=== PATIENT | female | born 1980 | race Caucasian/White ===

== ENCOUNTER → 2018-03-19 09:38 | Outpatient (REF) | payer BC, SELFPAY ==
--- NOTE | 2018-03-19 08:30 | PAPFT_PTH ---
PATIENT: Shannan Batista LOC: [facility] U#:[id number] AGE/SX: 44/F ROOM: RE03/19/[address]: CAMILLE Montejo : 1980 BED: DIS: SPEC #: [id number] RECD: 03/19/18 13:00 STATUS: ADAL RECaesar #: [id number] MYRIAM: 03/19/18 08:[address]: Leidy Aldridge DEPT: [facility] Cytology RECD BY: Sydney Angel ENTERED: 03/19/18 13:00 SP TYPE: PAPFT OT DR: Kahlil Camarillo MD Tissues: 1 - CX/ENDOCX FOR PAP SMEARS Procedures: PAP THIN PREP/UVM Screening HPV DNA PROBE Comments: [id number]
== END ==
LOC: LBN 09:38
PROVIDERS: PCP Family Medicine; Visit Provider Nurse Practitioner Family
DX: Z12.4 Encounter for screening for malignant neoplasm of cervix (principal); Z11.51 Encounter for screening for human papillomavirus (HPV)
CPT/HCPCS: 88142; 87624

== ENCOUNTER 2018-06-18 10:08 | Outpatient (CLI) | payer BC, SELFPAY ==
[2018-06-18 12:26] LABS: FREE T4 0.98 ng/dL (0.76-1.46)
== END 2018-06-18 10:28 ==
PROVIDERS: PCP Family Medicine; Visit Provider Nurse Practitioner Family
DX: E03.9 Hypothyroidism, unspecified (principal)
CPT/HCPCS: 36415; 84439; 84443

== ENCOUNTER 2019-06-30 13:11 | Outpatient (CLI) | payer BC, SELFPAY ==
[2019-06-30 14:25] LABS: FREE T4 1.12 ng/dL (0.76-1.46); TSH 3.36 uIU/mL (0.36-3.74)
[2019-06-30 14:40] LABS: Calculated LDL 99 mg/dL; Cholesterol 182 mg/dL (<200); HDL Cholesterol 73 mg/dL (40-60); Triglyceride 51 mg/dL (<150)
[2019-07-01 14:35] LABS: Measles IgG Antibody Positive (See Note)
== END 2019-06-30 13:31 ==
PROVIDERS: PCP Family Medicine; Visit Provider Nurse Practitioner Family
DX: E03.9 Hypothyroidism, unspecified (principal); Z01.84 Encounter for antibody response examination
CPT/HCPCS: 36415; 80061; 84439; 84443; 86765

== ENCOUNTER 2020-08-03 01:55 | Outpatient (CLI) | payer BC, SELFPAY ==
[2020-08-03 09:57] LABS: Hemoglobin A1C 5.1 % (<5.7)
[2020-08-03 10:39] LABS: FREE T4 1.07 ng/dL (0.76-1.46); TSH 2.35 uIU/mL (0.36-3.74)
== END 2020-08-03 02:15 ==
PROVIDERS: PCP Nurse Practitioner Family; Visit Provider Nurse Practitioner Family
DX: E03.9 Hypothyroidism, unspecified (principal)
CPT/HCPCS: 36415; 83036; 84439; 84443

== ENCOUNTER 2021-05-23 00:51 | Outpatient (CLI) | payer BC, SELFPAY ==
--- NOTE | 2021-05-23 08:45 | DI.MAMMO_ITS ---
Exam(s) MAMMO SCREENING EXAM: MAMMO SCREENING CLINICAL HISTORY: screening,Z12.39. TECHNIQUE: Bilateral full field digital CC and MLO mammographic images were obtained with 3D tomosyn thesis and utilizing computer aided detection (CAD). COMPARISON: None. This is a baseline mammogram on this 40-year-old patient. FINDINGS: Fibroglandular tissue pattern is quite dense, this decreasing the sensitivity of the mammogram for fi nding in underlying lesions. There are no CAD designations. There are no obvious spiculated masses nor malignant-appearing microcalcification groups in either br east. There is no significant architectural distortion nor skin thickening-retraction. IMPRESSION: Dense bilateral fibroglandular tissue. No obvious radiographic evidence of malignancy. BI-RADS Category 1 - Negative Breast Density - Category C - Heterogeneously dense Breast density Category C or D implies that the patient has dense breast tissue. Dense breast tissue can make it harder to find cancer on a mammogram. Dense breast tissue is also associated with an incr eased risk of breast cancer. This information about the result of the mammogram report was provided to the patient to raise their awareness. Use this report when you speak with the patient about their risks for breast cancer, which includes their family history. At that time, you may recommend additional screening tests (Ultrasoun d or MRI) as these tests may add significant information. A negative radiographic report should not delay biopsy if a dominant or clinically suspicious mass is present. Up to ten percent of cancers are not identified on mammography. A negative report may reinforce clinical impression. Adenosis and dense breasts may obscure an underlying neoplasm. False positive reports average 6 to 10%. Patient will receive a letter notifying them of these results.
== END 2021-05-23 01:11 ==
PROVIDERS: PCP Nurse Practitioner Family; Visit Provider Nurse Practitioner Family
DX: Z12.31 Encounter for screening mammogram for malignant neoplasm of breast (principal); R92.8 Other abnormal and inconclusive findings on diagnostic imaging of breast
CPT/HCPCS: 77063; 77067

== ENCOUNTER 2021-12-22 02:48 | Outpatient (CLI) | payer BC, SELFPAY ==
[2021-12-22 08:23] LABS: Anion Gap 8.7 mmol/L (3-11); BUN 17 mg/dL (7-18); CO2 24.3 mmol/L (21.0-32.0); CREATININE 0.8 mg/dL (0.55-1.02); Calcium 8.8 mg/dL (8.5-10.1); Chloride 108 mmol/L (98-107); FREE T4 0.99 ng/dL (0.76-1.46); Glucose 91 mg/dL (74-106); Sodium 141 mmol/L (136-145); TSH 4.11 uIU/mL (0.36-3.74)
== END 2021-12-22 02:49 | disposition home or self-care (01) ==
LOC: LBO 02:48
PROVIDERS: PCP Nurse Practitioner Family; Visit Provider Nurse Practitioner Family
DX: E03.9 Hypothyroidism, unspecified (principal)
CPT/HCPCS: 36415; 80048; 84439; 84443

== ENCOUNTER 2022-10-01 01:54 | Outpatient (CLI) | payer BC, SELFPAY ==
--- NOTE | 2022-10-01 08:30 | DI.MAMMO_ITS ---
Exam(s) MAMMO SCREENING EXAM: MAMMO SCREENING CLINICAL HISTORY: screening,Z12.39 TECHNIQUE: Bilateral full field digital CC and MLO mammographic images were obtained with 3D tomosyn thesis and utilizing computer aided detection (CAD). COMPARISON: Available for comparison. FINDINGS: Masses/Architectural Distortion: None seen. Microcalcifications: No suspicious pleomorphic-type are seen. Skin Thickening/Nipple Retraction: None. IMPRESSION: 1. No significant interval change with no specific features of malignancy noted. 2. Unless there is more urgent need, screening mammography is recommended, as per [employer] guidelines. BI-RADS Category 1 - Negative Breast Density - Category C - Heterogeneously dense Breast density category C or D implies that the patient has dense breast tissue. Dense breast tissue is very common and is not abnormal but dense breast tissue can make it harder to find cancer on a ma mmogram. Also, dense breast tissue may increase their breast cancer risk. This information about the result of the mammogram report was provided to the patient to raise their awareness. Use this report when you speak with the patient about their risks for breast cancer, which includes their family hist ory. At that time, you may recommend for more screening tests (Ultrasound or MRI) as they might be us eful based on their risk. A negative radiographic report should not delay biopsy if a dominant or clinically suspicious mass is present. Up to ten percent of cancers are not identified on mammography. A negative report may reinforce clinical impression. Adenosis and dense breasts may obscure an underlying neoplasm. False positive reports average 6 to 10%. Patient will receive a letter notifying them of these results.
== END 2022-10-01 02:14 ==
PROVIDERS: PCP Nurse Practitioner Family; Visit Provider Nurse Practitioner Family
DX: Z12.31 Encounter for screening mammogram for malignant neoplasm of breast (principal); R92.8 Other abnormal and inconclusive findings on diagnostic imaging of breast
CPT/HCPCS: 77063; 77067

== ENCOUNTER 2023-05-15 03:30 | Outpatient (CLI) | payer BC, SELFPAY ==
[2023-05-15 08:10] LABS: Anion Gap 8.3 mmol/L (3-11); BUN 14 mg/dL (7-18); CO2 23.7 mmol/L (21.0-32.0); CREATININE 0.9 mg/dL (0.55-1.02); Calcium 9.2 mg/dL (8.5-10.1); Chloride 109 mmol/L (98-107); Estimated GFR 81.86 (mL/min/1.73m2); Glucose 94 mg/dL (74-106); Potassium 4.2 mmol/L (3.5-5.1); Sodium 141 mmol/L (136-145); TSH (W/Ref FT4) 2.74 uIU/mL (0.36-3.74)
[2023-05-15 08:22] LABS: Calculated LDL 112 mg/dL (<100); Cholesterol 193 mg/dL (<200); HDL Cholesterol 69 mg/dL (40-60); Triglyceride 62 mg/dL (<150)
== END 2023-05-15 03:31 | disposition home or self-care (01) ==
LOC: LBO 03:30
PROVIDERS: PCP Nurse Practitioner Family; Visit Provider Nurse Practitioner Family
DX: Z00.00 Encounter for general adult medical examination without abnormal findings (principal)
CPT/HCPCS: 36415; 80048; 80061; 84443

== ENCOUNTER 2023-06-28 13:38 | Outpatient (REF) | payer BC, SELFPAY ==
--- NOTE | 2023-06-28 13:00 | PAPFT_PTH ---
PATIENT: Shannan Batista LOC: [facility] U#:[id number] AGE/SX: 42/F ROOM: RE06/28/[address]: CAMILLE Montejo : 1980 BED: DIS: 06/28/2023 SPEC #: [id number] RECD: 07/01/23 12:54 STATUS: ADAL REQ #: [id number] MYRIAM: 06/28/23 13:[address]: Leidy Aldridge DEPT: [facility] Cytology RECD BY: Sydney Angel Tissues: 1 - CX/ENDOCX FOR PAP SMEARS Procedures: PAP THIN PREP/UVM Screening HPV DNA PROBE Comments: [id number]
== END 2023-06-28 13:39 | disposition home or self-care (01) ==
LOC: LBN 13:38
PROVIDERS: PCP Nurse Practitioner Family; Visit Provider Nurse Practitioner Family
DX: Z12.4 Encounter for screening for malignant neoplasm of cervix (principal)
CPT/HCPCS: 88142; 87624

== ENCOUNTER 2023-09-13 14:47 | Outpatient (REF) | payer BC, SELFPAY | END 2023-09-13 14:48 | disposition home or self-care (01) | LOC: LBN 14:47 | PROVIDERS: PCP Nurse Practitioner Family; Visit Provider Physician Assistant Medical | DX: J02.9 Acute pharyngitis, unspecified (principal) | CPT/HCPCS: 87070 ==

== ENCOUNTER → 2023-10-02 00:17 | Outpatient (CLI) | payer BC, SELFPAY ==
--- NOTE | 2023-10-02 07:45 | DI.MAMMO_ITS ---
Exam(s) MAMMO SCREENING EXAM: MAMMO SCREENING CLINICAL HISTORY: screening,z12.39. TECHNIQUE: Bilateral full field digital CC and MLO mammographic images were obtained with 3D tomosyn thesis and utilizing computer aided detection (CAD). COMPARISON: Prior mammograms were reviewed. FINDINGS: Fibroglandular tissue pattern is again noted be dense, this somewhat decreasing the sensitivity of th e mammogram for finding hidden underlying lesions. There are no CAD designations. There are no obvious new spiculated masses nor malignant appearing microcalcification groups. There is no significant architectural distortion nor skin thickening-retraction. IMPRESSION: No radiographic evidence of malignancy. BI-RADS Category 1 - Negative Breast Density - Category C - Heterogeneously dense Breast density Category C or D implies that the patient has dense breast tissue. Dense breast tissue can make it harder to find cancer on a mammogram. Dense breast tissue is also associated with an incr eased risk of breast cancer. This information about the result of the mammogram report was provided to the patient to raise their awareness. Use this report when you speak with the patient about their risks for breast cancer, which includes their family history. At that time, you may recommend additional screening tests (Ultrasoun d or MRI) as these tests may add significant information. A negative radiographic report should not delay biopsy if a dominant or clinically suspicious mass is present. Up to ten percent of cancers are not identified on mammography. A negative report may reinforce clinical impression. Adenosis and dense breasts may obscure an underlying neoplasm. False positive reports average 6 to 10%. Patient will receive a letter notifying them of these results.
== END ==
PROVIDERS: PCP Nurse Practitioner Family; Visit Provider Nurse Practitioner Family
DX: Z12.31 Encounter for screening mammogram for malignant neoplasm of breast (principal)
CPT/HCPCS: 77063; 77067

== ENCOUNTER 2023-11-29 16:54 | Outpatient (CLI) | payer BC, SELFPAY ==
[2023-11-29 17:00] LABS: Abs Immature Grans 0.01 10^3/uL (0.0-0.06); Absolute Lymphocyte Count 2.33 10^3/uL (1.2-3.4); Absolute Monocyte Count 0.31 10^3/uL (0.1-0.8); Absolute Neutrophil Count 1.25 10^3/uL (1.2-6.7); HCT 33.9 % (36.0-46.0); HGB 10.9 g/dL (11.2-15.7); Immature Grans % 0.3; Lymphocytes % 59.7; MCH 25.9 pg (27.0-33.0); MCHC 32.2 % (32.0-36.0); MCV 81 fL (80-95); MPV 10.3 fL (8.0-11.0); Monocytes % 7.9; Neutrophils % 32.1; Platelet Count 239 10^3/uL (130-400); RBC 4.21 10^6/uL (3.93-5.22); RDW 13.2 % (11.7-14.6); RDW-SD 38.7 fL
[2023-11-29 17:40] LABS: ALT 17 U/L (14-59); AST 10 U/L (15-37); Albumin 3.8 g/dL (3.4-5.0); Alkaline Phosphatase 78 U/L (46-116); Anion Gap 9.1 mmol/L (3-11); BUN 15 mg/dL (7-18); Bilirubin, Total 0.4 mg/dL (0.2-1.0); CO2 25.9 mmol/L (21.0-32.0); CREATININE 0.9 mg/dL (0.55-1.02); Calcium 8.5 mg/dL (8.5-10.1); Chloride 107 mmol/L (98-107); Estimated GFR 81.35 (mL/min/1.73m2); Glucose 93 mg/dL (74-106); Lipase 57 U/L (16-77); Potassium 3.8 mmol/L (3.5-5.1); Sodium 142 mmol/L (136-145); Total Protein 6.8 g/dL (6.4-8.2)
[2023-12-02 08:21] LABS: Ferritin 8 ng/mL (8-252)
[2023-12-03 13:31] LABS: Helicobacter pylori Ag, Feces Negative (Negative)
== END 2023-11-29 16:55 | disposition home or self-care (01) ==
LOC: LBO 16:55
PROVIDERS: PCP Nurse Practitioner Family; Visit Provider Nurse Practitioner Family
DX: K21.9 Gastro-esophageal reflux disease without esophagitis (principal)
CPT/HCPCS: 36415; 80053; 83690; 87338; 82607; 82728; 82746; 85025

== ENCOUNTER 2023-12-06 01:16 | Outpatient (CLI) | payer BC, SELFPAY ==
[2023-12-06 16:58] LABS: Total Iron Binding Capacity 392 ug/dL (250-450)
[2023-12-06 17:11] LABS: Folate 19.3 ng/mL (8.6-20.0); TSH (W/Ref FT4) 1.36 uIU/mL (0.36-3.74); Vitamin B12 917 pg/mL (193-986)
[2023-12-09 10:00] LABS: Transferrin 289 mg/dL (201-352)
== END 2023-12-06 01:17 | disposition home or self-care (01) ==
LOC: LBO 01:17
PROVIDERS: PCP Nurse Practitioner Family; Visit Provider Nurse Practitioner Family
DX: D50.9 Iron deficiency anemia, unspecified (principal); D64.9 Anemia, unspecified
CPT/HCPCS: 36415; 82607; 82746; 83550; 84443; 84466

== ENCOUNTER 2024-01-03 16:02 | Outpatient (CLI) | payer BC, SELFPAY ==
[2024-01-03 16:16] LABS: Abs Immature Grans 0.01 10^3/uL (0.0-0.06); Absolute Lymphocyte Count 2.52 10^3/uL (1.2-3.4); Absolute Monocyte Count 0.31 10^3/uL (0.1-0.8); Absolute Neutrophil Count 1.64 10^3/uL (1.2-6.7); HCT 36.5 % (36.0-46.0); Immature Grans % 0.2 %; Lymphocytes % 56.3 %; MCH 27.1 pg (27.0-33.0); MCHC 32.9 % (32.0-36.0); MCV 83 fL (80-95); MPV 10.2 fL (8.0-11.0); Monocytes % 6.9 %; Neutrophils % 36.6 %; Platelet Count 187 10^3/uL (130-400); RBC 4.42 10^6/uL (3.93-5.22); RDW 16.8 % (11.7-14.6); RDW-SD 50.4 fL; WBC 4.48 10^3/uL (4.4-10.8)
[2024-01-03 16:57] LABS: ALT 17 U/L (14-59); AST 7 U/L (15-37); Albumin 3.6 g/dL (3.4-5.0); Alkaline Phosphatase 72 U/L (46-116); Anion Gap 4.8 mmol/L (3-11); BUN 15 mg/dL (7-18); Bilirubin, Total 0.2 mg/dL (0.2-1.0); CO2 25.2 mmol/L (21.0-32.0); CREATININE 0.7 mg/dL (0.55-1.02); Calcium 8.7 mg/dL (8.5-10.1); Chloride 106 mmol/L (98-107); Estimated GFR 109.98 (mL/min/1.73m2); Ferritin 32 ng/mL (8-252); Glucose 118 mg/dL (74-106); Potassium 3.6 mmol/L (3.5-5.1); Sodium 136 mmol/L (136-145); Total Protein 6.3 g/dL (6.4-8.2)
== END 2024-01-03 16:03 | disposition home or self-care (01) ==
LOC: LBO 16:02
PROVIDERS: PCP Nurse Practitioner Family; Visit Provider Nurse Practitioner Family
DX: D50.9 Iron deficiency anemia, unspecified (principal); K21.9 Gastro-esophageal reflux disease without esophagitis
CPT/HCPCS: 36415; 80053; 82728; 85025

== ENCOUNTER 2024-01-24 06:18 | Day surgery (SDC) | payer BC, SELFPAY ==
--- NOTE | 2024-01-23 19:31 | W.PM.DSUDISC ---
Date of service: 01/24/24 Time of Service: 07:42 Discharge Plan Disposition Patient Disposition: Home Condition: Good Discharge Details Reason For Visit: EGD Attending Provider: Raul Batista Primary Care Provider: Leidy Aldridge Home Meds and New Rx's Prescriptions: Continued venlafaxine 150 mg capsule,extended release 24hr 150 mg PO DAILY Qty: 90 3RF cyanocobalamin (vitamin B-12) 1,000 mcg capsule 1,000 mcg PO DAILY sucralfate 1 gram tablet 1 g PO QACHS PRN (Reason: heartburn) Qty: 60 0RF omeprazole 40 mg capsule,delayed release(DR/EC) 40 mg PO DAILY Qty: 90 0RF levothyroxine 88 mcg tablet 88 mcg PO DAILY Qty: 90 3RF ferrous sulfate 325 mg (65 mg iron) tablet 325 mg PO DAILY Qty: 90 3RF Discharge Instructions Instructions: Gastritis Additional Instructions: Mariela, we were able to complete your endoscopy today without any difficulty at all. Generally speaking, things look very good. There is a few areas of erythema, or inflammation in the bottom portion of your stomach called the antrum. This is consistent with some very mild gastritis. It could explain a mild iron deficiency anemia. I did do some biopsies of your stomach, as well as the first portion of your small intestine. Although I do not see strong clinical features of celiac disease, or other worrisome peptic ulcer disease, I will send the biopsies off to see if there is anything that is not evident to the naked eye. For now, I would continue using the omeprazole, and the iron supplementation. You are certainly welcome to use your sucralfate prescription if you find it helpful, but based on what I saw today, I am skeptical that is doing much for you. Will take a week or so for me to get the results of the biopsies, and once I have them the office will be in touch with any other recommendations. 1. If tolerated, consume a soft, low fiber diet for 1-2 days. 2[address] Do not drive, drink alcohol, operate machinery, make critical decisions, or do activities that require coordination or balance for 24 hours. 3. You may experience a sore throat for 24 to 48 hours. You may use throat lozenges or gargle with warm salt water to relieve the discomfort. 4. Because air was put into your stomach during the procedure, you may experience some belching. 5. Go directly to the emergency room if you notice any of the following: Develop chills (warm to touch), or if you have a thermometer and your temperature is above 101 Difficulty breathing or difficultly swallowing Persistent vomiting Severe abdominal pain, other than gas cramps Severe chest pain Black, tarry stools Any bleeding ? exceeding one tablespoon 6. Call your physician if the site where your intravenous was started becomes red, swollen, painful, and warm to touch. 7. Your physician has reviewed your pre-procedure medications. Please continue to take those medications as previously ordered. You will be given specific information/education regarding any changes to your medications before leaving. Activity:: Activity as Tolerated Diet:: As Tolerated Discharge Orders Discharge Orders: Discharge Order (Routine); Ordered 01/23/24 Ordered By: Raul Batista DS: Diagnosis Discharge Diagnosis (1) Iron deficiency anemia: Status: Acute Asessment and Plan: Mild antral gastritis. Continue with proton pump inhibitor. Follow-up on biopsies
--- NOTE | 2024-01-23 19:32 | ENDO_ITS ---
Date of service: 01/24/24 Time of Service: 07:45 Endoscopy Report DATE OF PROCEDURE: 01/24/24 PRE-OP DIAGNOSIS: Iron deficiency Anemia POST-OP DIAGNOSIS: other (Mild gastritis) PROCEDURE: EGD with biopsies SURGEON: Raul Batista ANESTHESIA TYPE: General:No Airway ESTIMATED BLOOD LOSS: 10 PATHOLOGY: other (Random biopsies of duodenum, gastric antrum, gastric body) COMPLICATIONS: None DISPOSITION: same day INDICATIONS: Mariela is a 43 year old woman with dyspepsia symptoms and iron deficiency anemia. PROCEDURE START TIME: 07:27 PROCEDURE END TIME: 07:35 FINDINGS: Very mild antral gastritis PROCEDURE DESCRIPTION: After the initiation of anesthesia, and with the assistance of a bite block, I advanced a standard gastroscope through the mouth past the hypopharynx and into the esophagus.? Under the direct vision of the scope, I advanced down the esophagus towards the stomach.? The upper, mid, and lower esophagus were all normal-appearing. The GE junction and Z-line were encountered around 36 cm from the incisors. Narrowband imaging was used here. I did not see any evidence of any significant gastroesophageal reflux, or Harp's esophagus. I advanced the camera into the stomach and insufflated to the rugae were obliterated. To perform retroflexion. I did not see any signs of hiatal hernia. Gastric cardia and body were normal. I advanced the camera down around the incisura angularis. There are a few areas of erythema and inflammation that appear consistent with antral gastritis. There are no discrete ulcers. I advanced down through the pylorus into the duodenum. The camera was moved into the distal second and proximal third portions of the duodenum. The mucosa was all normal and healthy appearing. Villi within the duodenum proper appeared normal and healthy. There was a little bit of thinning of the duodenal villi within the duodenal bulb. H owever, it does not seem clinically consistent with celiac disease. I did perform some random biopsies of the duodenum with cold forceps. Similarly, I perform random biopsies of the gastric antrum and body to rule out Helicobacter pylori or other forms of gastritis not evident to the naked eye. The stomach was then emptied, and the camera was brought back out along the length of the esophagus 1 last time. No other abnormalities were appreciated.
[2024-01-24 06:39] VITALS: BP 107/68; PULSE 72; RESP 16; TEMP 36.7; O2SAT 99
[2024-01-24] MEDS: Lactated Ringers 1,000 ML 80 ML IV (06:41)
--- NOTE | 2024-01-24 07:02 | ANES.PREOP_ITS ---
General Info Date of Service Date Performed: 01/24/24 Height: 5 ft 7.75 in Weight: 53.977 kg Body Mass Index (BMI): 18.2 Surgical Procedure: Operation Date: 01/24/24 07:35 Proposed Procedure Side Surgeon p Gastroscopy Raul Batista MD Meds Allergies and Home Medications Allergies Allergy/AdvReac Type Severity Reaction Status Date / Time propranolol AdvReac Mild Rash Verified 01/24/24 06:25 Home Medication Medication Instructions Recorded levothyroxine 88 mcg tablet 88 mcg PO DAILY #90 tabs 05/16/23 venlafaxine 150 mg 150 mg PO DAILY #90 caps 06/28/23 capsule,extended release 24 hr cyanocobalamin (vitamin B-12) 1,000 mcg PO DAILY 08/13/23 1,000 mcg capsule sucralfate 1 gram tablet 1 g PO QACHS PRN heartburn #60 tabs 11/28/23 ferrous sulfate 325 mg (65 mg 325 mg PO DAILY #90 tabs 12/04/23 iron) tablet omeprazole 40 mg capsule,delayed 40 mg PO DAILY #90 caps 12/30/23 release Current Visit Medications: Current Medications Generic Name Dose Route Start Last Admin Trade Name Freq PRN Reason Stop Dose Admin Hyoscyamine Sulfate 0.125 mg 01/23/24 19:33 Hyoscyamine 0.125 Mg Sl/Oral/Chew SL 02/22/24 19:32 DIRECTED PRN Ringer's Solution 1,000 mls @ 80 mls/hr 01/24/24 06:00 01/24/24 06:41 IV 02/22/24 23:59 80 mls/hr INFUSION BRIANA Administration IV Miscellaneous Supplies 1 each 01/24/24 06:00 Iv Access IV 02/22/24 23:59 DIRECTED BRIANA Ondansetron HCl 4 mg 01/23/24 19:33 Ondansetron 4 Mg/2 Ml Vial IVP 02/22/24 19:32 Q4H PRN PRN Nausea / Vomiting Sodium Chloride 0 ml 01/24/24 06:00 Normal Saline Flush 10 Ml Syr IV 02/22/24 23:59 PRN PRN Sodium Chloride 0 ml 01/24/24 06:00 Normal Saline 10 Ml Vial IJ 02/22/24 23:59 DIRECTED PRN Sterile Water 0 ml 01/24/24 06:00 Water,Injection,Sterile 10 Ml Vial IJ 02/22/24 23:59 DIRECTED PRN PFSH Active Problems Active Problems: Problem Status Onset Code Iron deficiency anemia D50.9 GERD (gastroesophageal reflux disease) K21.9 Hypothyroidism E03.9 Perimenopausal vasomotor symptoms N95.1 Migraine headache without aura G43.009 Chronic headache R51.9, G89.29 Generalized anxiety disorder Medical History Medical History Herpes zoster Surgical History Surgical History Status post endovenous radiofrequency ablation (RFA) of saphenous vein (10/30/17) Right GSV ablation with RFA and stab phlebectomies S/P appendectomy Tobacco Smoking/Tobacco Use Status: Never Passive smoking exposure: No Second hand exposure: No Alcohol Alcohol Intake: current Alcohol intake frequency: holidays/special occasions only Alcohol type: beer and wine Substance Use Substance use: Never Substance use type: does not use Prental History History 2 Para 2 Hx # Term Pregnancies Multiple births Hx # Pregnancies Ectopic pregnancies AB induced Hx Number of Living Children 2 AB spontaneous Vital Signs and Lab Results Vital Signs Most Recent Vital Signs in EMR: Most Recent Vital Signs Temp Pulse Resp BP Pulse Ox 36.7 C 72 16 107/68 99 01/24/24 06:39 01/24/24 06:39 01/24/24 06:39 01/24/24 06:39 01/24/24 06:39 Point of Care Results Point of Care Results: POC- Test(urine) Negative 01/24/24 06:42 Lab Results Blood Type / Crossmatch: No Data to Display Complete Blood Count: White Blood Count 4.48 10^3/uL (4.4-10.8) 01/03/24 16:09 Red Blood Count 4.42 10^6/uL (3.93-5.22) 01/03/24 16:09 Hemoglobin 12.0 g/dL (11.2-15.7) 01/03/24 16:09 Hematocrit 36.5 % (36.0-46.0) 01/03/24 16:09 Platelet Count 187 10^3/uL (130-400) 01/03/24 16:09 Complete Metabolic Panel: Sodium 136 mmol/L (136-145) 01/03/24 16:09 Potassium 3.6 mmol/L (3.5-5.1) 01/03/24 16:09 Chloride 106 mmol/L (98-107) 01/03/24 16:09 Carbon Dioxide 25.2 mmol/L (21.0-32.0) 01/03/24 16:09 BUN 15 mg/dL (7-18) 01/03/24 16:09 Creatinine 0.7 mg/dL (0.55-1.02) 01/03/24 16:09 Est GFR (CKD-EPI 2020) 109.98 (mL/min/1.73m2) 01/03/24 16:09 Calcium 8.7 mg/dL (8.5-10.1) 01/03/24 16:09 Albumin 3.6 g/dL (3.4-5.0) 01/03/24 16:09 Glucose 118 mg/dL (74-106) H 01/03/24 16:09 Liver Function Panel: Alanine Aminotransferase (ALT/SGPT) 17 U/L (14-59) 01/03/24 16: 09 Aspartate Amino Transf (AST/SGOT) 7 U/L (15-37) L 01/03/24 16:0 9 Coagulation Panel: No Data to Display Cardiac Panel: No Data to Display Arterial Blood Gas: No Data to Display Venous Blood Gas: No Data to Display Pancreas Panel: No Data to Display Thyroid Panel: No Data to Display Infectious Disease: No Data to Display Blood Cultures: No Data to Display Toxicology Panel: No Data to Display Panel: No Data to Display Anesthesia Assessment and Plan Anesthesia History Personal History: No History of Anesthesia Complications Family History: No Family History of Anesthesia Complications Exercise Tolerance Exercise Tolerance: Metabolic Equivalents>4 Pertinent Negatives Pertinent Negatives: No Major Cardiovascular Symptoms or Complaints and No Major Pulmonary Symptoms or Complaints Cardiac & Pulmonary Exam Cardiac Exam: Normal S1/S2 Heart Sounds Pulmonary Exam: Clear Bilateral Breath Sounds Implantable Cardiac Device Does patient have a Pacemaker or an ICD?: No Airway Exam Known Difficult Airway: No Mallampati Class: 1 Mouth Opening: Normal (> 3cm) Thyromental Distance: Greater than 3 cm Neck Range of Motion: Full ROM Neck Circumference: Normal Teeth Condition: Normal Dentition ASA Classification ASA Score: ASA 2 Emergency Case?: No NPO Status NPO Status: NPO Clears >2 hours, Solids >8 hours Status Status: Negative HCG Anesthesia Plan Resuscitation Status: Full Code Anesthesia Technique: General Anesthesia Airway Planned: Natural Airway Monitors Used: Standard Monitors
[2024-01-24 07:04] VITALS: BMI 18.2
--- NOTE | 2024-01-24 07:30 | STOM_PTH ---
PATIENT: Shannan Batista LOC: [facility] U#:[id number] AGE/SX: 43/F ROOM: RE01/24/[address]: Raul Batista MD : 1980 BED: DIS: 01/24/2024 SPEC #: [id number] RECD: 01/24/24 12:59 STATUS: ADAL [facility] #: [id number] MYRIAM: 01/24/24 07:[address]: Raul Batista DEPT: Surgical Specimen RECD BY: Sydney Angel ENTERED: 01/24/24 12:59 SP TYPE: STOMACH OTHR DR: Leidy Aldridge, CAMILLE Tissues: 1 - BIOPSY BOWEL 2 - STOMACH BIOPSY 3 - STOMACH BIOPSY Procedures: GROSS AND MICRO LEVEL 4 SPECIAL STAIN 1 Comments: [id number]
[2024-01-24 07:46] VITALS: BP 100/59; PULSE 71; RESP 16; TEMP 36.5; O2SAT 98
--- NOTE | 2024-01-24 07:54 | W.ANESPOSTOP ---
Postoperative Evaluation Date, Time and Location Date Performed: 01/24/24 Time Performed: 07:54 Patient Location: Day Surgery Unit Vital Signs Most Recent Imported Vital Signs: Most Recent Vital Signs Temp Pulse Resp BP Pulse Ox 36.5 C 71 16 100/59 L 98 01/24/24 07:46 01/24/24 07:46 01/24/24 07:46 01/24/24 07:46 01/24/24 07:46 Pain Score Most Recent Pain Score: Most Recent Pain Score Pain Level 0 01/24/24 07:46 Assessment Mental Status: Arousable with meaningful communication Airway and Respiratory Function: Patent airway with normal (patient baseline) respiratory exam Cardiovascular Function: Hemodynamically Stable Hydration Status: Adequately Hydrated Nausea & Vomiting: No Nausea or Vomiting Pain: Pt. Denies Any Pain Peripheral Nerve Block: Patient did not receive a nerve block
[2024-01-24 08:13] VITALS: BP 106/65; PULSE 59; RESP 16; TEMP 36.5; O2SAT 100
== END 2024-01-24 08:52 | disposition home or self-care (01) ==
LOC: SUR 06:18
PROVIDERS: PCP Nurse Practitioner Family; Visit Provider Surgery
PROC: 0DJ68ZZ Inspection of Stomach, Via Natural or Artificial Opening Endoscopic (ICD-10-PCS; CPT 43235; principal; 2024-01-24 07:30)
DX: D50.9 Iron deficiency anemia, unspecified (principal); K21.9 Gastro-esophageal reflux disease without esophagitis; K29.50 Unspecified chronic gastritis without bleeding; K31.89 Other diseases of stomach and duodenum
CPT/HCPCS: 43239; 81025; 88305; 88312; J2001; J2704

== ENCOUNTER 2024-06-05 19:08 | Outpatient (REF) | payer BC, SELFPAY ==
--- OUTSIDE RECORDS SUMMARY | 2024-06-05 19:10 | XMS_ITS | Encounter Summary ---
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 Name Role Phone Sania Bolanos APRN Primary Care Provider [phone] Reason for Visit * Reason Comments Varicose Veins * Consultation (Routine) - Specialty Diagnoses / Procedures Referred By Elissa estrada Referred To Contact Vascular Surgery Diagnoses Varicose veins of leg Sania Bolanos APRN [address] [place] [address] [facility] [address] [place] [address] Referral ID Status Reason Start Date Expiration Date V isits Requested Visits Authorized [id number] Consult, [facility] 07/28/2017 07/28/2018 2 2 Encounter Details Date Type Department Care Team (Late st Contact Info) Description 08/02/2017 9:30 AM EST Office [place] [address] Mickie Canas APRN [facility] [place] [address] Varicose veins of right lower extremity with pain Social History Tobacco Use Types Packs/Day Years Used Date Smoking Tobacco: Never Smokeless Tobacco: Never Sex and Gender Information Value Date Recorded Sex Assigned at Not on file Gender Identity Not on file Sexual Orientation Not on file documented as of this encounter Last Filed Vital Signs Vital Sign Reading Time Taken Comments Blood Pressure 126/55 08/02/2017 9:47 AM EST Pulse 74 08/02/2017 9:47 AM EST Temperature - - Respiratory Rate - - Oxygen Saturation - - Inhaled Oxygen Concentration - - Weight 54.4 kg (120 lb) 08/02/2017 9:47 AM EST Height 172.7 cm (5' 8) 08/02/2017 9:47 AM EST Body Mass Index 18.25 08/02/2017 9:47 AM EST documented in this encounter Progress Notes * Mickie Canas APRN - 08/02/2017 9:30 AM EST Consult requested by Sania Bolanos APRN for evaluation of painful varicose veins. History: This is a 36 y.o. female who has noted painful R LE varicose veins for one year with worsening overlast 6 months. The patient has noted the following symptoms below for 6 months. The patient has notused 20-30mmHg compression stockings. Due to the symptoms below, the patient has difficulty work and it is affecting the quality of life. Y N SYMPTOM X Leg aching X Leg swelling X Leg elevation greater than 20 minutes/3x per day x Daily use of compression stockings 20-30mmHg (6-8 weeks) x Family history of varicose veins X History of more than two episodes of phlebitis x Refractory edema x Stasis dermatitis X History of DVT X Prior venous surgery X Prior ulceration X Current ulceration X History of two more episodes of bleeding varicosities X Chronic cellulitis Patient Active Problem List Diagnosis Code ??? Acne vulgaris L70.0 ??? Varicose veins of right lower extremity with pain I83.811 ' Review of Systems: Prior cardiac history: no Prior pulmonary history: no Prior issues with general anesthesia: no Family history of malignant hyperthermia: no Issues with snoring or sleep apnea: no PE: Most Recent Vitals: 08/02/17 0947 BP: 126/55 Pulse: 74 Body mass index is 18.25 kg/(m^2). Heart: RRR, no murmurs, no S3 or S4 Chest: CTA, no wheeze Location of the varicosities: right Size of the varicosities (greater than 3mm): 4-7 mm right medial calf alejo VV Carotid pulses equal and bilateral No palpable pulsatile abdominal masses, no abdominal bruits Palpable bilateral femoral, popliteal and tibial pulses Y N PHYSICAL FINDINGS X Radial pulses bilaterally X DP and PT pulses bilaterally X Palp cords X Evidence of healed ulceration X Stasis dermatitis X Cellulitis X Palpable Thrills Assessment/Plan: 36 yo female with symptomatic right LE varicose veins for 1 year worsening over last 6 months. She has not worn prescription compression Prescriptions for 20-30 mmH knee high writtenfor her. To be worn daily. RTC 6-8 weeks with R LE valvular incomp study and see one of the surgeons if she fails compression. documented in this encounter Plan of Treatment Not on file documented as of this encounter Visit Diagnoses Diagnosis Varicose veins of right lower extremity with pain Varicose veins of lower extremities with other complications documented in this encounter Care Teams Lace Roller Operator Relationship Specialty Start Date End Date Sania Bolanos APRN PCP - General Family Medicine 08/02/17 documented as of this encounter
--- OUTSIDE RECORDS SUMMARY | 2024-06-05 19:10 | XMS_ITS | Encounter Summary ---
Author Organization [facility] Address [address] [place] [address] Care Team Providers Care Sap Treasury Consultant Name Role Phone Unknown, Provider Primary Care Provider [phone] Encounter Details Date Type Department Care Team ([facility] st Contact Info) Description 02/15/2015 Results Only [facility] [phone] Sania Guerra, MECHANICAL CAD DRAFTER [address] [place] [address] Social History Tobacco Use Types Packs/Day Years Used Date Smoking Tobacco: Never Assessed Sex and Gender Information Value Date Recorded Sex Assigned at Not on file Gender Identity Not on file Sexual Orientation Not on file documented as of this encounter Plan of Treatment Not on file documented as of this encounter Procedures Procedure Name Priority Date/Time Associated Diagnosis Comments PAP TEST- RESULT ONLY Routine 02/15/2015 0:00 EDT documented in this encounter Results * PAP TEST- RESULT ONLY (02/15/2015 0:00 EDT) Pathology Report: CYTOPATHOLOGY REPORT Reports generated via electronic interface contain original data; however they are lacking the format of the original report. Caution should be taken when reading/interpreti ng unformatted reports. Name: ? JOSE BATISTA ? Accession #: ? [id number] ? : ? 1980 (Age: 34) ??F ?Collect Date: ? 02/15/2015 ? Location: ? [facility] ? Receive Date: ? 02/16/2015 ? Provider: SANIA GUERRA MECHANICAL CAD DRAFTER Copy to: ? Final Report SPECIMEN ADEQUACY ? Satisfactory for Evaluation - transformation zone component present GENERAL CATEGORIZATION ? Negative for Intraepithelial Lesion or Malignancy ?? Last Menstrual Period: 01/17/15 Previous Gynecologic Pathology: ASC-US: 2005 Specimen/Source: ??Pap Test, Cervix/Endocervix, ThinPrep Imaging System with manual evaluation Document reviewed and electronically signed by: ? MARQUEZ Alexander(ASCP) ? Report ??Date: 02/24/2015 13:08 HPV with Pap Test ? Date Ordered: ? 02/23/2015 ? Status: ?? Signed Out ?Date Complete: ? 02/28/2015 ? By: ??System Interface ? Date Reported: ? 02/28/2015 ? Interpretation RESULT: Negative for HPV. No E6 or E7 mRNA is detected from HPV types 16,18,31,33,35, 39,45,51,52,56,58, 59,66, and 68 by bowling or skating front desk clerk mediated amplification. Comments Document reviewed and electronically signed by: ? System Interface ? Report date: 02/28/2015 By the signature above, the attending physician certifies that he/she has personally conducted a gross and/or microscopic examination of the described specimens and rendered or confirmed the above diagnosis. End of Report [facility] 02/15/2015 02/16/2015 Sania Guerra NP PATHOLOGY ORDERABLES [facility] [address] [place] [address] documented in this encounter Visit Diagnoses Not on filedocumented in this encounter Care Teams Sap Treasury Consultant Relationship Specialty Start Date End Date Unknown, Provider, PCP - General 07/01/09 documented as of this encounter
--- OUTSIDE RECORDS SUMMARY | 2024-06-05 19:10 | XMS_ITS | Encounter Summary ---
[place] [address] Care Team Providers Care Development Associate Name Role Phone Annita Church MD Primary Care Provider [phone] Encounter Details Date Type Department Care Team (Late st Contact Info) Description 09/14/2010 10:45 AM EST Office Visit Dermatology [address] [place], [place] [id number] Wallace Chawla MD [address] [place] [address] RD, [place] [address] Social History Tobacco Use Types Packs/Day Years Used Date Smoking Tobacco: Never Assessed Sex and Gender Information Value Date Recorded Sex Assigned at Not on file Gender Identity Not on file Sexual Orientation Not on file documented as of this encounter Plan of Treatment Not on file documented as of this encounter Visit Diagnoses Not on filedocumented in this encounter Care Teams Development Associate Relationship Specialty Start Date End Date Annita Church MD [address] [place] [address] PCP - General 07/04/10 08/01/17 documented as of this encounter
--- OUTSIDE RECORDS SUMMARY | 2024-06-05 19:10 | XMS_ITS | Encounter Summary ---
[place] [address] Care Team Providers Care Cloth Shearing Supervisor Name Role Phone Annita Church MD Primary Care Provider [phone] Reason for Visit * Reason Comments Acne Encounter Details Date Type Department Care Team (Late st Contact Info) Description 05/20/2012 8:00 AM EDT Office Visit Dermatology [address] [place], [place] [id number] Wallace Chawla MD [address] [place] [address] RD, [place] [address] Acne vulgaris (Primary Dx) Social History Tobacco Use Types Packs/Day Years Used Date Smoking Tobacco: Never Sex and Gender Information Value Date Recorded Sex Assigned at Not on file Gender Identity Not on file Sexual Orientation Not on file documented as of this encounter Progress Notes * Wallace Chawla MD - 05/20/2012 8:36 AM EDT Dictated documented in this encounter Miscellaneous Notes * Miscellaneous - Danitza Cevallos - 05/29/2012 6:01 PM EDT documented in this encounter Plan of Treatment Not on file documented as of this encounter Visit Diagnoses Diagnosis Acne vulgaris- Primary Other acne documented in this encounter Care Teams Cloth Shearing Supervisor Relationship Specialty Start Date End Date Annita Church MD [address] [place] [address] PCP - General 07/04/10 08/01/17 documented as of this encounter
--- OUTSIDE RECORDS SUMMARY | 2024-06-05 19:10 | XMS_ITS | Encounter Summary ---
Author Organization [facility] [place] [address] Care Team Providers Care Cash On Delivery Clerk Name Role Phone Annita Church MD Primary Care Provider [phone] Reason for Visit * Reason Comments Acne Encounter Details Date Type Department Care Team (Late st Contact Info) Description 11/01/2011 10:00 AM EDT Office Visit Dermatology [address] [place], [place] [id number] Wallace Chawla MD [address] [place] [address] RD, [place] [address] Acne vulgaris (Primary Dx) Social History Tobacco Use Types Packs/Day Years Used Date Smoking Tobacco: Never Sex and Gender Information Value Date Recorded Sex Assigned at Not on file Gender Identity Not on file Sexual Orientation Not on file documented as of this encounter Progress Notes * Wallace Chawla MD - 11/01/2011 10:13 AM EDT Problem: Followup acne vulgaris status post three months of acitretin. Mariela follows up and has been doing well. She has been tolerating the medication well without side effects. She has been taking 40 mg one p.o. daily. Her acne has been entirely quiescent for the last couple of months now. 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 She never had any involvement of the chest or back. Assessment and Plan: Acne vulgaris status post three months of acitretin. a. Continue acitretin 40 mg one p.o. daily. The patient weighs 54 kg. b. control method will continue to be vasectomy and male latex condom. c. Return to clinic in one month for repeat check. Repeat labs at that time. We will continue to plan on a five-month course. d. Patient congratulated on wonderful response to date with two more months left to go. documented in this encounter Plan of Treatment Not on file documented as of this encounter Visit Diagnoses Diagnosis Acne vulgaris- Primary Other acne documented in this encounter Care Teams Cash On Delivery Clerk Relationship Specialty Start Date End Date Annita Church MD [address] [place] [address] PCP - General 07/04/10 08/01/17 documented as of this encounter
--- OUTSIDE RECORDS SUMMARY | 2024-06-05 19:10 | XMS_ITS | Encounter Summary ---
Author Organization [facility] Address [address] [place] [address] Care Team Providers Care Garment Finisher Name Role Phone Unknown, Provider Primary Care Provider [phone] Encounter Details Date Type Department Care Team (Late st Contact Info) Description [address] [facility] - Maple conversion [address] [place] [address] Loki Yates, DO [address] [facility] [address] [place], [place] [id number] Social History Tobacco Use Types Packs/Day Years Used Date Smoking Tobacco: Never Assessed Sex and Gender Information Value Date Recorded Sex Assigned at Not on file Gender Identity Not on file Sexual Orientation Not on file documented as of this encounter Plan of Treatment Not on file documented as of this encounter Procedures Procedure Name Priority Date/Time Associated Diagnosis Comments SURGICAL PATHOLOGY Routine 1999 9:39 EST documented in this encounter Results * SURGICAL PATHOLOGY (1999 9:39 EST) Pathology Report: SURGICAL PATHOLOGY REPORT Reports generated via electronic interface contain original data; however they are lacking the format of the original report. Caution should be taken when reading/interpreti ng unformatted reports. Name: ? JOSE BATISTA ? Accession #: ? [id number] ? : ? 1980 (Age: 19) ??F ? Collect Date: ? 1999 ? Location: ?Receive Date: ? 1999 ? Provider: LOKI YATES DO Copy to: LOKI YATES DO MAGALYS COX MD ? Final Pathologic Diagnosis: MICROSCOPIC DIAGNOSIS: ? 1. ??Esophagus, 38 cm, biopsies: ? - Basal cell hyperplasia, balloon cell formation, and rare ? intraepithelial eosinophils, consistent with moderate ? reflux esophagitis. ? - Glandular, cardia-type gastric mucosa with mild chronic ? inflammation. ? 2. ??Esophagus, 25 cm, biopsies: ? - Marked basal cell hyperplasia, balloon cell formation, and ? numerous intraepithelial eosinophils, consistent with ? moderate to severe reflux esophagitis. ? Document reviewed and electronically signed by: Conversion for CHALINO COX Report ??Date: 09/07/1999 00:00 By the signature above, the attending physician certifies that he/she has personally conducted a gross and/or microscopic examination of the described specimens and rendered or confirmed the above diagnosis. Specimen(s) Received: TISSUE SUBMITTED: ? 1. Bx 38 cm esoph ? 2. Bx 25 cm esoph CLINICAL DATA: ? Esophagitis; dysphagia S/P vomiting Gross Description: GROSS: ? Received in Hollande's fixative labelled Елена and #1 38 ? cm esophagus are three bynum-peoples irregular soft tissues ranging ? from 0.2 x 0.2 x 0.2 cm to 0.5 x 0.2 x 0.2 cm. ??The specimen is ? entirely submitted as (A). ? Received in Hollande's fixative labelled Елена and #2 ? esophagus 25 cm are four bynum-peoples irregular 0.2 x 0.2 x 0.2 cm ? soft tissue fragments. ??The specimen is entirely submitted as (B) ? and (C). ??(Danis Velasco)/[facility] ? End of Report [facility] 1999 9:39 EST 1999 9:40 EST Loki Yates DO PATHOLOGY ORDER JUDIE [facility] [address] [place] [address] documented in this encounter Visit Diagnoses Not on filedocumented in this encounter Care Teams Garment Finisher Relationship Specialty Start Date End Date Unknown, Provider, PCP - General 07/01/09 documented as of this encounter
--- OUTSIDE RECORDS SUMMARY | 2024-06-05 19:10 | XMS_ITS | Encounter Summary ---
Author Organization [facility] Address [address] [place] [address] Care Team Providers Care Personal Injury Legal Assistant Name Role Phone Unknown, Provider Primary Care Provider [phone] Encounter Details Date Type Department Care Team ([facility] st Contact Info) Description 11/30/2023 Lab Requisition [facility] Pathology & Laboratory Medicine - [address] [address] Outr Resulting Lab, Provider Social History Tobacco Use Types Packs/Day Years Used Date Smoking Tobacco: Never Assessed Sex and Gender Information Value Date Recorded Sex Assigned at Not on file Gender Identity Not on file Sexual Orientation Not on file documented as of this encounter Plan of Treatment Not on file documented as of this encounter Procedures Procedure Name Priority Date/Time Associated Diagnosis Comments H. PYLORI ANTIGEN Routine 11/29/2023 16: 00 EDT documented in this encounter Results * H. PYLORI ANTIGEN (11/29/2023 16:00 EDT) H. Pylori Negative Negative 12/03/2023 13:27 EDT [facility] Comment:Indicates the absenc e of H. pylori stool antigen, (or the level of antigen is below that which can be detected by the assay) Feces SPECIMEN FROM RECTUM / Unknown 11/29/2023 16:00 EDT 12/01/2023 15:14 EDT Narrative [facility] - 12/03/2023 13:27 EDT New Liaison XL testing method used as of 06/03/2023 Provider Outr Resulting Lab MICROBIOLOGY - GENERAL ORDERABLES [facility] [address] [place] [id number] documented in this encounter Visit Diagnoses Not on filedocumented in this encounter Care Teams Personal Injury Legal Assistant Relationship Specialty Start Date End Date Unknown, Provider, PCP - General 07/01/09 documented as of this encounter
--- OUTSIDE RECORDS SUMMARY | 2024-06-05 19:10 | XMS_ITS | Encounter Summary ---
Author Organization [facility] [place] [address] Care Team Providers Care Tourism Radio Presenter Name Role Phone Annita Church MD Primary Care Provider [phone] Reason for Visit * Reason Comments Acne Encounter Details Date Type Department Care Team (Late st Contact Info) Description 09/27/2011 9:45 AM EST Office Visit Dermatology [address] [facility] [address] [facility] [address] [place], [place] [phone] Wallace Chawla MD [address] [place] [address] RD, [place] [address] Acne vulgaris (Primary Dx) Social History Tobacco Use Types Packs/Day Years Used Date Smoking Tobacco: Never Sex and Gender Information Value Date Recorded Sex Assigned at Not on file Gender Identity Not on file Sexual Orientation Not on file documented as of this encounter Progress Notes * Wallace Chawla MD - 09/27/2011 10:10 AM EST Problem: Followup acne vulgaris, status post two months of Isotretinoin. Mariela follows up and is now status post two months of Isotretinoin. She has been tolerating it well. She has a fair amount of xerosis of the lips and of the dorsal hands but is able to compensate for this with Chap-Stick and cocoa butter for her hands. She has not had any side effects or problems with the Isotretinoin. It is working very well for her. 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 She never had any involvement on the chest or back. Assessment & Plan: Acne vulgaris, status post two months of Isotretinoin. a. Continue Isotretinoin 40mg one p.o. q. day. The patient weighs 54kg. b. control method will continue to be vasectomy and male latex condom. c. RTC in one month for repeat check with repeat labs at that time, will plan on a five-month course. d. Patient congratulated on wonderful response to date, three more months to go. Copy: Annita Church MD documented in this encounter Plan of Treatment Not on file documented as of this encounter Visit Diagnoses Diagnosis Acne vulgaris- Primary Other acne documented in this encounter Care Teams Tourism Radio Presenter Relationship Specialty Start Date End Date Annita Church MD [address] [place] [address] PCP - General 07/04/10 08/01/17 documented as of this encounter
--- OUTSIDE RECORDS SUMMARY | 2024-06-05 19:10 | XMS_ITS | Clinical Summary ---
Author Organization [facility] Address [facility] [place] [address] Care Team Providers Care Hand Crown Pouncer Name Role Phone Sania Bolanos APRN Primary Care Provider [phone] Allergies No known active allergies Medications Medication Sig Dispensed Refills Start Date End Date Status levothyroxine (SYNTHROID) 88 mcg Tablet Take 88 mcg by mouth daily. Active Active Problems Problem Noted Date Diagnosed Date Varicose veins of right lower extremity with vanessa n 08/02/2017 Acne vulgaris 06/25/2011 Immunizations Name Administration Dates Next Due Td Adult (not absorbed) 08/28/2006 Social History Tobacco Use Types Packs/Day Years Used Date Smoking Tobacco: Never Smokeless Tobacco: Never Alcohol Use Standard Drinks/Week Comments No 0 (1 standard drink = 0.6 oz pur e alcohol) Sex and Gender Information Value Date Recorded Sex Assigned at Not on file Gender Identity Not on file Sexual Orientation Not on file Last Filed Vital Signs Vital Sign Reading Time Taken Comments Blood Pressure 119/45 12/05/2017 2:10 PM EDT Pulse 62 12/05/2017 2:10 PM EDT Temperature 36.8 ??C (98.2 ??F) 10/30/2017 9:00 AM ED T Respiratory Rate 18 12/05/2017 2:10 PM EDT Oxygen Saturation 100% 10/30/2017 9:54 AM EDT Inhaled Oxygen Concentration - - Weight 54.4 kg (120 lb) 12/05/2017 2:10 PM EDT Height 58 cm (1' 10.84) 12/05/2017 2:10 PM EDT Body Mass Index 161.8 12/05/2017 2:10 PM EDT Plan of Treatment Health Maintenance Due Date Last Done Comments HIV screen 1998 Hepatitis C Screening 1998 Hepatitis B vaccine (0-59 yrs) (1) 1999 Tetanus/Diphtheria/Pertussis Vaccines (1 - Tdap) 08/2908/28/2006 HPV test 2010 PAP Smear 2010 Breast Cancer Share Decision Needed 2020 Breast Cancer screening 2020 Covid-19 Vaccine (1 - season) 2024 Influenza (Flu) vaccine (1 o f 1 - Influenza standard series) 04/12/2024 Care Teams Hand Crown Pouncer Relationship Specialty Start Date End Date Sania Bolanos APRN PCP - General Family Medicine 08/02/17
--- OUTSIDE RECORDS SUMMARY | 2024-06-05 19:10 | XMS_ITS | Encounter Summary ---
[place] [address] Care Team Providers Care Portfolio Strategist Name Role Phone Annita Church MD Primary Care Provider [phone] Reason for Visit * Reason Comments Acne Encounter Details Date Type Department Care Team (Late st Contact Info) Description 12/04/2011 10:15 AM EDT Office Visit Dermatology [address] [place], [place] [phone] Wallace Chawla MD [address] [place] [address] RD, [place] [address] Acne vulgaris (Primary Dx) Social History Tobacco [...] acne documented in this encounter Care Teams Portfolio Strategist Relationship Specialty Start Date End Date Annita Church MD [address] [place] [address] PCP - General 07/04/10 08/01/17 documented as of this encounter
--- OUTSIDE RECORDS SUMMARY | 2024-06-05 19:10 | XMS_ITS | Encounter Summary ---
Author Organization [facility] Address [address] [place] [address] Care Team Providers Care Laborer Plumbing Name Role Phone Unavailable Primary Care Provider Unavailabl e Encounter Details Date Type Department Care Team (Late st Contact Info) Description 02/21/2009 Orders Only [facility] Laboratory Services - [facility] ([facility] [address] [place] [id number] Nieves Dawkins, GEOMATICS PROFESSOR Social History Tobacco Use Types Packs/Day Years Used Date Smoking Tobacco: Never Assessed Sex and Gender Information Value Date Recorded Sex Assigned at Not on file Gender Identity Not on file Sexual Orientation Not on file documented as of this encounter Plan of Treatment Not on file documented as of this encounter Procedures Procedure Name Priority Date/Time Associated Diagnosis Comments CYTOPATHOLOGY Routine 02/21/2009 0:00 EDT documented in this encounter Results * CYTOPATHOLOGY (02/21/2009 0:00 EDT) Pathology Report: CYTOPATHOLOGY REPORT ? Reports generated via electronic interface contain original data; ? however they are lacking the format of the original report. ? Caution should be taken when reading/interpreti ng unformatted reports. ? Name: ? JOSE BATISTA ? Accession #: ? [id number] ? : ? 1980 (Age: 28) ??F ?Collect Date: ? 02/21/2009 ? Location: ? [facility] ? Receive Date: ? 02/22/2009 ? Provider: ?NIEVES M KASH GEOMATICS PROFESSOR ? Copy to: ? Specimen/Source: ?Pap Test, Cervix/Endocervix, ThinPrep Imaging System ? with manual evaluation ? Last Menstrual Period: ? 06/15/09 ? Previous Gynecologic Pathology: ? ASC-US: 04/05 ? Other: ? Additional clinical information: 10/05 HPV neg. ? HPVA - HPV testing requested if ASC-US on the current ThinPrep Pap test. ? SPECIMEN ADEQUACY ? Satisfactory for Evaluation ? - transformation zone component present ? GENERAL CATEGORIZATION ? Negative for Intraepithelial Lesion or Malignancy ? Document reviewed and electronically signed by: ? Volodymyr Cash, CT(ASCP) ? Report Date: ??02/25/2009 09:37 ? End of Report ? [facility] 02/21/2009 02/22/2009 Nieves Dawkins NP PATHOLOGY ORDERABLES [facility] [address] [place] [address] documented in this encounter Visit Diagnoses Not on filedocumented in this encounter
--- OUTSIDE RECORDS SUMMARY | 2024-06-05 19:10 | XMS_ITS | Encounter Summary ---
Author Organization [facility] Address [address] [place] [address] Care Team Providers Care Manager Company Name Role Phone Unknown, Provider Primary Care Provider [phone] Encounter Details Date Type Department Care Team (Late st Contact Info) Description 04/15/2003 Results Only [facility] - Maple conversion [address] [place] [address] Nieves Dawkins, CABLEWAY OPERATOR Social History Tobacco Use Types Packs/Day Years Used Date Smoking Tobacco: Never Assessed Sex and Gender Information Value Date Recorded Sex Assigned at Not on file Gender Identity Not on file Sexual Orientation Not on file documented as of this encounter Plan of Treatment Not on file documented as of this encounter Procedures Procedure Name Priority Date/Time Associated Diagnosis Comments CYTOPATHOLOGY Routine 04/15/2003 0:00 EDT documented in this encounter Results * CYTOPATHOLOGY (04/15/2003 0:00 EDT) Pathology Report: CYTOPATHOLOGY REPORT Reports generated via electronic interface contain original data; however they are lacking the format of the original report. Caution should be taken when reading/interpreti ng unformatted reports. Name: ? JOSE BATISTA ? Accession #: ? [id number] : ? 1980 (Age: 22) ??F ?Collect Date: ? 04/15/2003 Location: ? [facility] ? Receive Date: ? 04/19/2003 Provider: ?NIEVES DAWKINS CABLEWAY OPERATOR Copy to: ? Specimen/Source: ?Conventional Pap Test, Cervix/Endocervix Last Menstrual Period: ? 03/31/03 Hormonal/Contracep tive Status: ? Oral contraceptives ? SPECIMEN ADEQUACY ? Satisfactory for Evaluation - transformation zone component present GENERAL CATEGORIZATION ? Negative for Intraepithelial Lesion or Malignancy ? Document reviewed and electronically signed by: ? Brenda Lopez, CT(ASCP) ? Report Date: ??04/20/2003 12:47 End of Report [facility] 04/15/2003 04/19/2003 Nieves Dawkins NP PATHOLOGY ORDERABLES [facility] [address] [place] [address] documented in this encounter Visit Diagnoses Not on filedocumented in this encounter Care Teams Manager Company Relationship Specialty Start Date End Date Unknown, Provider, PCP - General 07/01/09 documented as of this encounter
--- OUTSIDE RECORDS SUMMARY | 2024-06-05 19:10 | XMS_ITS | Encounter Summary ---
Author Organization [facility] [place] [address] Care Team Providers Care Metrologist Name Role Phone Annita Church MD Primary Care Provider [phone] Reason for Visit * Reason Comments Acne Encounter Details Date Type Department Care Team (Late st Contact Info) Description 07/25/2011 10:15 AM EST Office Visit Dermatology [address] [facility] [address] [place], [place] [id number] Wallace Chawla MD [address] [place] [address] RD, [place] [address] Acne vulgaris (Primary Dx) Social History Tobacco Use Types Packs/Day Years Used Date Smoking Tobacco: Never Sex and Gender Information Value Date Recorded Sex Assigned at Not on file Gender Identity Not on file Sexual Orientation Not on file documented as of this encounter Progress Notes * Wallace Chawla MD - 07/25/2011 10:43 AM EST Problem: Acne vulgaris ready to begin Isotretinoin. Jazmyn follows up and has waited the required month and had two negative tests in anticipation of beginning Isotretinoin today. She received the notification from [employer] program with a username and password. Physical examination today again reveals a pleasant 30-year-old woman who has mild and papular inflammatory acne vulgaris along the jaw line and periorally. She has no acne on the chest or back. Assessment & Plan: Acne vulgaris, resistant to standard therapies, ready to begin Isotretinoin. a. Begin Isotretinoin 30mg one p.o. q. day. Patient weighs 54kg. b. control method will be vasectomy and male latex condom. c. RTC in one month for repeat check with repeat labs in one month. d. Reviewed IPLEDGE program requirements with patient. Discontinue Benzoyl Peroxide and Tretinoin but may continue Dove Soap. Copy: Annita Church MD documented in this encounter Plan of Treatment Not on file documented as of this encounter Visit Diagnoses Diagnosis Acne vulgaris- Primary Other acne documented in this encounter Care Teams Metrologist Relationship Specialty Start Date End Date Annita Church MD [address] [place] [address] PCP - General 07/04/10 08/01/17 documented as of this encounter
--- OUTSIDE RECORDS SUMMARY | 2024-06-05 19:10 | XMS_ITS | Encounter Summary ---
Author Organization [facility] Address [facility] [place] [address] Care Team Providers Care Grain Cleaner And Transfer Operator Name Role Phone Sania Bolanos APRN Primary Care Provider [phone] Reason for Visit * Auth/Cert Specialty Diagnoses / Procedures Referred By Elissa t Referred To Contact Diagnoses varicose veins Procedures PRO LIGATE/STRIP LONG SAPH VEIN BELW SEP-FEM JUNC PRO PHLEB VEINS - EXTREM - TO 20 LIGATION\DIV\STRIP GREATER SAPHENOUS VEIN (WRVU 8.16) STAB PHLEBECTOMY JUD VEINS 1 EXTREMITY 10-20 INCISIONS (WRVU 7.71) Referral ID Status Reason Start Date Expiration Date Visits Re quested Visits Authorized [id number] 1 1 Encounter Details Date Type Department Care Team (Late st Contact Info) Description 10/30/2017 7:32 AM EDT Anesthesia [place] [address] Sahra Mathis MD [facility] [place] [address] Shahbaz Bradford MD [facility] [place] [address] Anesthesia Record Procedure Summary Procedure Name Responsible Anesthesiologist Anesthesia Start Time Anesthesia Stop Time ENDOVENOUS ABLATION THERAPY OF INCOMPETENT VEIN, EXTREMITY, FIRST VEIN (WRVU 5.3) (Right: Leg Upper) Sahra Mathis MD 10/30/17 0732 10/30/17 0906 Events Date Time Event Comment 10/30/2017 0732 AN Verify 0732 Start 0732 An Start Data 0736 An Induction 0738 An Intubation 0742 Anesthesia Ready 0851 Extubation/LMA Out 0851 an stop data 0905 Recovery or ICU Handoff Jana ent care was transferred to the destination unit staff after review of the patient's medical history, current anesthetic/surgical status and plan, according to the Provider Handoff Checklist. 0906 Stop 10/31/2017 0712 Meds Name Total Propofol INF 228.48 mg fentaNYL 100 mcg Midazolam 2 mg Dexamethasone 4 mg Ondansetron 4 mg ePHEDrine 5 mg ceFAZolin (ANCEF) 2g in dextrose 5% 100 mL 2 g Lactated Ringers 400 mL * Agents Name O2 Air N2O Sevoflurane (et) * Blood No blood administrations on file. Lines, Drains, and Airways Type Details Placement Removal (RETIRED) Peripheral IV Line - Single Lumen 10/30/17; 0702; median cubital vein (antecubital fossa), left; xvyd-orr-libkas catheter system; 20 gauge, 1 in length; intradermal injection, tolerated well, appears comfortable, age-appropriate response; no longer indicated, removed per policy/procedure, catheter/device intact; 10/30/17; 1147 10/30/17 0702 by Ysabel Palmer RN 10/30/17 1147 by Jasson Bender, RN Supraglottic Mask Ventilation: Yfn sy (1); LMA Type: iGel; LMA Size: 3; Inserted by: Suzette; Removal Date: 10/30/17; Removal Time: 0851 10/30/17 0738 by Shahbaz Bradford MD 10/30/17 0851 by Shahbaz Bradford MD Incision 10/30/17; 0801; leg (Multiple stab phlebectomies); 04/09/22 (LDA cleanup utility RA#[id number]); 1715 (LDA cleanup utility RA#[id number]) 10/30/17 0801 by Kaylie Cerna RN 04/09/22 1715 by Manjinder Medellin documented in this encounter Social History Tobacco Use Types Packs/Day Years Used Date Smoking Tobacco: Never Smokeless Tobacco: Never Alcohol Use Standard Drinks/Week Comments No 0 (1 standard drink = 0.6 oz pur e alcohol) Sex and Gender Information Value Date Recorded Sex Assigned at Not on file Gender Identity Not on file Sexual Orientation Not on file documented as of this encounter OR Notes * Anesthesia Postprocedure Evaluation - Sahra Mathis MD - 10/31/2017 7:12 AM EDT [facility] Department of Anesthesiology Post-procedure Note Patient: Shannan Batista Procedure Summary Date Anesthesia Start Anesthesia Stop Room / Location 10/30/17 0732 0906 [facility] OR [facility] MAIN OR Procedure Diagnosis Surgeon Responsible Provider ENDOVENOUS ABLATION THERAPY OF INCOMPETENT VEIN, EXTREMITY, FIRST VEIN (WRVU 5.3) (Right Leg Upper); LIGATION, DIVISION, AND\OR EXCISION OF VARICOSE VEIN CLUSTERS (WRVU 3.93) (Right Leg) (varicose veins) Jennyfer Montes De Oca MD Clark, Jeffrey A, MD All Anesthesia Providers: Anesthesiologist: Sahra Mathis MD Museum Archivist: Shahbaz Bradford MD Most Recent Vitals: 10/30/17 0954 BP: Pulse: Resp: Temp: SpO2: 100% Pain Patient Location: PACU/[facility] Level of Consciousness: Awake and Alert Pain Management: Satisfactory Analgesia PONV: None Cardiovascular Status: At Baseline and Hemodynamically Stable Respiratory Status: At Baseline and Room Air Postoperative Fluid Status: Intravascular EUvolemia Possible Anesthetic Complications: NONE apparent at time of evaluation Final Primary Anesthesia Type: General (The anesthetic type performed was the same as planned.) Comments: SAHRA MATHIS MD * Anesthesia Preprocedure Evaluation - Shahbaz Bradford MD - 10/29/2017 2:03 PM EDT Pre-Anesthesia Evaluation for: Shannan Batista a 37 y.o. female. Procedure(s): LIGATION\DIV\STRIP GREATER SAPHENOUS VEIN (WRVU 8.16) STAB PHLEBECTOMY JUD VEINS 1 EXTREMITY 10-20 INCISIONS (WRVU 7.71) ENDOVENOUS ABLATION THERAPY OF INCOMPETENT VEIN, EXTREMITY, FIRST VEIN (WRVU 5.3) ENDOVENOUS ABLATION THERAPY, EXTREMITY, SUBSQ VEIN, SEPARATE ACCESS SITE (WRVU 2.65) LIGATION AND DIVISION OF GREATER SAPHENOUS VEIN AT SAPHENOFEMORAL JUNCTION (WRVU 3.82) LIGATION OF RECREATION INSTRUCTOR VEINS, SUBFASCIAL, OPEN, W/ULTRASOUND (WRVU 9.13) STAB PHLEBECTOMY JUD VEINS 1 EXTREMITY MORE 20 INCISIONS (WRVU 9.66) LIGATION, DIVISION, AND\OR EXCISION OF VARICOSE VEIN CLUSTERS (WRVU 3.93) STAB PHLEBECTOMY JUD VEINS 1 EXTREMITY <10 INCISIONS (WRVU *) Patient Active Problem List Diagnosis ??? Varicose veins of right lower extremity with pain ??? Acne vulgaris Past Medical History: Diagnosis Date ??? Varicose veins of both lower extremities with pain 08/02/2017 No past surgical history on file. Social History Substance Use Topics ??? Smoking status: Never Smoker ??? Smokeless tobacco: Never Used ??? Alcohol use Not on file History Drug Use Not on file No Known Allergies Medications: MAR and/or home medications have been reviewed. Physical Exam: There were no vitals filed for this visit. There is no height or weight on file to calculate BMI. Airway Assessment: Mallampati: I TM distance: >3 FB Neck ROM: full Cardiovascular Assessment: cardiovascular exam normal Pulmonary Assessment: pulmonary exam normal Dental Assessment: - normal exam Misc Assessment: Anesthesia Plan: ASA 1 general, 37 year old 54 kg female here for stab phlebectomy for symptomatic RLE varicose veins. Previously healthy, no listed cardiac or pulmonary disease. No allergies GA with LMA, ETT backup ASA monitors PIV access as needed Informed Consent: PAT Staff Note documented in this encounter Plan of Treatment Not on file documented as of this encounter Visit Diagnoses Not on filedocumented in this encounter Administered Medications Inactive Administered Medications - up to 3 most recent administrations Medication Order MAR Action Action Date Dose Rate Site ceFAZolin (ANCEF) 2g in dextrose 5% 100 mL 2 g, Intravenous, ONCE, 1 dose, On Sat10/30/17 at 0715, Administer over 30 Minutes, Redose every 3 hours if CrCl is greater than 20. Redose every 8 hours if CrCl is less than 20., Day of Surgery (Day of Procedure), Indication for (Active or Suspected): Prophylaxis Given 10/30/2017 7:56 AM EDT 2 g dexamethasone (DECADRON) injection Intravenous, PRN, Starting on Sat10/30/17 at 0742, Until Sat10/30/17 at 0909, Anesthesia Intra-op, Routine Given 10/30/2017 7:42 AM EDT 4 mg ePHEDrine 5 mg/mL multi-dose injection Intravenous, PRN, Starting on Sat10/30/17 at 0830, Until Sat10/30/17 at 0909, Anesthesia Intra-op, Routine Given 10/30/2017 8:30 AM EDT 5 mg fentaNYL 50 mcg/mL multi-dose injection Intravenous, PRN, Starting on Sat10/30/17 at 0736, Until Sat10/30/17 at 0909, Pain, Anesthesia Intra-op, Routine Given 10/30/2017 7:57 AM EDT 50 mcg Given 10/30/2017 7:36 AM EDT 50 mcg lactated Ringers infusion CONTINUOUS PRN, Starting on Sat10/30/17 at 0732, Until Sat10/30/17 at 0909, Anesthesia Intra-op New Bag 10/30/2017 7:32 AM EDT midazolam (PF) (VERSED) 1 mg/mL multi-dose injection Intravenous, PRN, Starting on Sat10/30/17 at 0732, Until Sat10/30/17 at 0909, Sleep, Anesthesia Intra-op, Routine Given 10/30/2017 7:32 AM EDT 2 mg ondansetron (ZOFRAN) injection Intravenous, PRN, Starting on Sat10/30/17 at 0742, Until Sat10/30/17 at 0909, Nausea, Anesthesia Intra-op, Routine Given 10/30/2017 7:42 AM EDT 4 mg propofol (DIPRIVAN) infusion Intravenous, CONTINUOUS PRN, Starting on Sat10/30/17 at 0742, Until Sat10/30/17 at 0909, Anesthesia Intra-op, Routine New Bag 10/30/2017 7:42 AM EDT 50 mcg/kg/min 16.3 mL/hr documented in this encounter Care Teams Grain Cleaner And Transfer Operator Relationship Specialty Start Date End Date Sania Bolanos APRN PCP - General Family Medicine 08/02/17 documented as of this encounter
--- OUTSIDE RECORDS SUMMARY | 2024-06-05 19:10 | XMS_ITS | Encounter Summary ---
Author Organization [facility] Address [address] [place] [address] Care Team Providers Care Ribbon Hanking Machine Operator Name Role Phone Unknown, Provider Primary Care Provider [phone] Encounter Details Date Type Department Care Team (Late st Contact Info) Description 06/06/2006 Results Only [facility] [address] [place] [address] Estelle Sampson, [facility] [address] [place] [phone] Social History Tobacco Use Types Packs/Day Years Used Date Smoking Tobacco: Never Assessed Sex and Gender Information Value Date Recorded Sex Assigned at Not on file Gender Identity Not on file Sexual Orientation Not on file documented as of this encounter Plan of Treatment Not on file documented as of this encounter Procedures Procedure Name Priority Date/Time Associated Diagnosis Comments CYTOPATHOLOGY Routine 06/06/2006 0:00 EDT documented in this encounter Results * CYTOPATHOLOGY (06/06/2006 0:00 EDT) Pathology Report: CYTOPATHOLOGY REPORT Reports generated via electronic interface contain original data; however they are lacking the format of the original report. Caution should be taken when reading/interpreti ng unformatted reports. Name: ? JOSE BATISTA ? Accession #: ? [id number] : ? 1980 (Age: 25) ??F ?Collect Date: ? 06/06/2006 Location: ? [facility] ? Receive Date: ? 06/07/2006 Provider: ?ESTELLE SAMPSON BARREL CHARRER HELPER Copy to: ? Specimen/Source: ?ThinPrep Pap Test, Cervix/Endocervix, processed on [facility] ThinPrep Imaging System, with manual evaluation Last Menstrual Period: ? 05/23/06 Hormonal/Contracep tive Status: ? Oral contraceptives Previous Gynecologic Pathology: ? ASC-US: 11/27/04 Conventional pap. ??06/04/05 HPV neg Other: ? HPVA - HPV testing requested if ASC-US on the current ThinPrep Pap test. ? SPECIMEN ADEQUACY ? Satisfactory for Evaluation - transformation zone component present GENERAL CATEGORIZATION ? Negative for Intraepithelial Lesion or Malignancy INTERPRETATION ? Fungal organisms present morphologically consistent with Mayra species. ? Document reviewed and electronically signed by: ? MARQUEZ Martinez(ASCP) ? Report Date: ??06/12/2006 13:48 End of Report [facility] 06/06/2006 06/07/2006 Estelle Sampson BARREL CHARRER HELPER PATHOLOGY ORDERABLES [facility] [address] [place] [address] documented in this encounter Visit Diagnoses Not on filedocumented in this encounter Care Teams Ribbon Hanking Machine Operator Relationship Specialty Start Date End Date Unknown, Provider, PCP - General 07/01/09 documented as of this encounter
--- OUTSIDE RECORDS SUMMARY | 2024-06-05 19:10 | XMS_ITS | Encounter Summary ---
Author Organization [facility] [place] [address] Care Team Providers Care Orthopedic Physician Assistant Name Role Phone Annita Church MD Primary Care Provider [phone] Reason for Visit * Reason Comments Acne Encounter Details Date Type Department Care Team (Late st Contact Info) Description 06/25/2011 11:30 AM EST Office Visit Dermatology [address] [facility] [address] [place], [place] [id number] Wallace Chawla MD [address] [place] [address] RD, [place] [address] Acne vulgaris (Primary Dx) Social History Tobacco Use Types Packs/Day Years Used Date Smoking Tobacco: Never Sex and Gender Information Value Date Recorded Sex Assigned at Not on file Gender Identity Not on file Sexual Orientation Not on file documented as of this encounter Progress Notes * Wallace Chawla MD - 06/25/2011 12:15 PM EST Problem: Acne vulgaris. Jazmyn follows up and unfortunately continues to have difficulty with her acne this despite multiple standard therapies including Tetracycline, Minocycline, Spironolactone, Benzoyl Peroxide and Tretinoin 0.025% Gel. The patient used Spironolactone from January until about a month ago but it did not work for her. She D/Marc it. Physical examination today reveals a pleasant 30-year-old who has mild inflammatory acne vulgaris present on the jaw line periorally. She has no acne on the chest or back. Assessment & Plan: Acne vulgaris resistant to standard therapies. a. Discussed the option of Isotretinoin. Discussed benefits and side effects. The patient is willing to try this. b. Patient's partner has had a vasectomy and her control method will be male latex condom and vasectomy. c. Today check baseline urine test which was negative. Obtain baseline labs including serum test in one month. d. RTC in one month to initiate medication. e. IPLEDGE program booklet given to patient with counseling about benefits and side effects of the medication. f. As patient weighs 54kg will be starting her on 20mg a day for the first month and then likely 40mg q. day thereafter. g. In one month discontinue Benzoyl Peroxide and Tretinoin, for the next month continue these. Cc: Annita Church MD documented in this encounter Plan of Treatment Not on file documented as of this encounter Visit Diagnoses Diagnosis Acne vulgaris- Primary Other acne documented in this encounter Care Teams Orthopedic Physician Assistant Relationship Specialty Start Date End Date Annita Church MD [address] [place] [address] PCP - General 07/04/10 08/01/17 documented as of this encounter
--- OUTSIDE RECORDS SUMMARY | 2024-06-05 19:10 | XMS_ITS | Encounter Summary ---
Author Organization [facility] Address [address] [place] [address] Care Team Providers Care Tumor Registrar Name Role Phone Unknown, Provider Primary Care Provider [phone] Encounter Details Date Type Department Care Team (Late st Contact Info) Description 02/26/2011 Results Only [facility] Laboratory Services - [facility] ([facility] [address] [place] [id number] Nieves Dawkins, [employer] CONSULTANT Social History Tobacco Use Types Packs/Day Years [...] Diagnosis Comments PAP TEST- RESULT ONLY Routine 02/26/2011 0:00 EDT documented in this encounter Results * PAP TEST- RESULT ONLY (02/26/2011 0:00 EDT) Pathology Report: CYTOPATHOLOGY REPORT ? Reports generated via electronic interface contain original data; ? however they are lacking the format of the original report. ? Caution should be taken when reading/interpreti ng unformatted reports. ? Name: ? JOSE BATISTA ? Accession #: ? [id number] ? : ? 1980 (Age: 30) ??F ?Collect Date: ? 02/26/2011 ? Location: ? [facility] ? Receive Date: ? 02/27/2011 ? Provider: NIEVES M KASH [employer]ACLE SOA CONSULTANT ? Copy to: ? Final Report ? SPECIMEN ADEQUACY ? Satisfactory for Evaluation ? - transformation zone component present ? GENERAL CATEGORIZATION ? Negative for Intraepithelial Lesion or Malignancy ? INTERPRETATION ? Fungal organisms present morphologically consistent with Mayra species. ? Last Menstural Period: 01/25/11 ? Previous Gynecologic Pathology: ASC-US: 11/14, 05/16 ? Other: Additional clinical information: HPV negative 05/16, 02/23/10 pap negative Specimen/Source: ??Pap Test, Cervix/Endocervix, ThinPrep Imaging System with ? manual evaluation ? Document reviewed and electronically signed by: ? Maryan F. Colasacco, SCT(ASCP) ? Report ??Date: 03/06/2011 06:13 ? HPV with Pap Test ? Date Ordered: ? 03/05/2011 ? Status: ?? Signed Out ?Date Complete: ? 03/07/2011 ? By: ??System Interface ? Date Reported: ? 03/07/2011 ? Interpretation ? RESULT: Negative for HPV types 16, 18, 31, 33, 35, 39, 45, 51, 52, ? 56, 58, 59, and 68. ? NHPV2 ? Comments ? Document reviewed and electronically signed by: ? System Interface ? Report date: 03/07/2011 ? By the signature above, the attending physician certifies that he/she has ? personally conducted a gross and/or microscopic examination of the described ? specimens and rendered or confirmed the above diagnosis. ? End of Report ? [facility] 02/26/2011 02/27/2011 Nieves Dawkins NP PATHOLOGY ORDERABLES [facility] [address] [place] [address] documented in this encounter Visit Diagnoses Not on filedocumented in this encounter Care Teams Tumor Registrar Relationship Specialty Start Date End Date Unknown, Provider, PCP - General 07/01/09 documented as of this encounter
--- OUTSIDE RECORDS SUMMARY | 2024-06-05 19:10 | XMS_ITS | Encounter Summary ---
Author Organization [facility] [place] [address] Care Team Providers Care Change Management Consultant Name Role Phone Annita Church MD Primary Care Provider [phone] Reason for Visit * Reason Comments Acne Encounter Details Date Type Department Care Team (Late st Contact Info) Description 09/24/2013 8:30 AM EST Office Visit Dermatology at [address] [place] [address] Wallace Chawla MD [address] [place] [address] RD, [place] [address] Acne vulgaris (Primary Dx) Social History Tobacco Use Types Packs/Day Years Used Date Smoking Tobacco: Never Sex and Gender Information Value Date Recorded Sex Assigned at Not on file Gender Identity Not on file Sexual Orientation Not on file documented as of this encounter Progress Notes * Wallace Chawla MD - 09/24/2013 9:09 AM EST Problem: 1. Acne vulgaris. 2. Status post five-month course of isotretinoin, completed December 2011. Jazmyn follows up and is doing well. So long as she uses the benzyl peroxide in the mornings and the tretinoin at night she has been mostly able to control her acne. Things look pretty good today. 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 Physical examination reveals a pleasant 33-year-old woman who has no active acne vulgaris today. She is blue eyed, fair skinned, blonde. Assessment and Plan: Acne vulgaris, controlled with current therapies. a. Today refills given for her current therapies; tretinoin 0.1% cream applied q.h.s., 20 grams dispensed with five refills. b. Continue benzyl peroxide 5% water-based gel applied to face in the morning after washing; 60 grams dispensed with five refills. c. No need for oral intervention at this time. Return to clinic in another year for repeat check. COPY: Annita Church M.D. documented in this encounter Plan of Treatment Not on file documented as of this encounter Visit Diagnoses Diagnosis Acne vulgaris- Primary Other acne documented in this encounter Care Teams Change Management Consultant Relationship Specialty Start Date End Date Annita Church MD [address] [place] [address] PCP - General 07/04/10 08/01/17 documented as of this encounter
--- OUTSIDE RECORDS SUMMARY | 2024-06-05 19:10 | XMS_ITS | Referral Summary ---
Author Organization [facility] Address [address] [place] [address] Care Team Providers Care Adolescent Medicine Specialist Name Role Phone Unknown, Provider Primary Care Provider [phone] Encounters Date Type Department Care Team Description 06/05/2024 Lab Requisition [facility] Pathology & Laboratory Medicine - [facility] [address] [place] [address] Outr Resulting Lab, Provider from Last 3 Months Social History Tobacco Use Types Packs/Day Years Used Date Smoking Tobacco: Never Assessed Sex and Gender Information Value Date Recorded Sex Assigned at Not on file Gender Identity Not on file Sexual Orientation Not on file Plan of Treatment Not on file Care Teams Adolescent Medicine Specialist Relationship Specialty Start Date End Date Unknown, Provider, PCP - General 07/01/09
--- OUTSIDE RECORDS SUMMARY | 2024-06-05 19:10 | XMS_ITS | Encounter Summary ---
Author Organization [facility] [place] [address] Care Team Providers Care Bridge Repairer Name Role Phone Annita Church MD Primary Care Provider [phone] Reason for Visit * Reason Comments Acne Encounter Details Date Type Department Care Team (Late st Contact Info) Description 08/27/2011 2:00 PM EST Office Visit Dermatology [address] [facility] [address] [place], [place] [id number] Wallace Chawla MD [address] [place] [address] RD, [place] [address] Acne vulgaris (Primary Dx) Social History Tobacco Use Types Packs/Day Years Used Date Smoking Tobacco: Never Sex and Gender Information Value Date Recorded Sex Assigned at Not on file Gender Identity Not on file Sexual Orientation Not on file documented as of this encounter Progress Notes * Wallace Chawla MD - 08/27/2011 2:20 PM EST Problem: Acne vulgaris, status post one month of Isotretinoin. Jazmyn follows up and is now status post one month of Isotretinoin. She tolerated the first month well without any significant problems or side effects. She has a fair amount of xerosis of her lips which she is able to treat adequately with Chap Stick. She also has had some xerosis of the dorsal hands. She will be getting her one-month Isotretinoin blood work done when she leaves the office. Physical examination reveals a pleasant 30-year-old woman whose mild papular and inflammatory acne vulgaris on the jaw line periorally has largely flattened. She did not have acne on the chest or back. Assessment & Plan: Acne vulgaris, status post one-month of Isotretinoin with initially good response. a. Continue Isotretinoin but advance from 30mg to 40mg one p.o. q. day. Patient weighs 54kg. b. control method will continue to be vasectomy and male latex condom. c. RTC in one month for repeat check and repeat labs prior to that visit. d. Patient congratulated on initial good results. Given prescription for Triamcinolone 0.1% Cream to apply BID/p.r.n. if cocoa butter is not adequate to clear her dorsal hand rash. documented in this encounter Plan of Treatment Not on file documented as of this encounter Visit Diagnoses Diagnosis Acne vulgaris- Primary Other acne documented in this encounter Care Teams Bridge Repairer Relationship Specialty Start Date End Date Annita Church MD [address] [place] [address] PCP - General 07/04/10 08/01/17 documented as of this encounter
--- OUTSIDE RECORDS SUMMARY | 2024-06-05 19:10 | XMS_ITS | Encounter Summary ---
Author Organization [facility] Address [address] [place] [address] Care Team Providers Care Manufacturing Maintenance Technician Name Role Phone Unknown, Provider Primary Care Provider [phone] Encounter Details Date Type Department Care Team ([facility] st Contact Info) Description 07/05/2023 Lab Requisition [facility] Pathology & Laboratory Medicine - [address] [address] Leidy Aldridge NP [address] [place] [address] Encounter for other general examination Social History Tobacco Use Types Packs/Day Years Used Date Smoking Tobacco: Never Assessed Sex and Gender Information Value Date Recorded Sex Assigned at Not on file Gender Identity Not on file Sexual Orientation Not on file documented as of this encounter Plan of Treatment Not on file documented as of this encounter Procedures Procedure Name Priority Date/Time Associated Diagnosis Comments PAP TEST Today 06/28/2023 13:00 EST Encounter for other general examination HPV DNA DETECTION WITH GENOTYPING, PCR Today 06/28/2023 13:00 EST Encounter for other general examination documented in this encounter Results * HUMAN PAPILLOMAVIRUS (HPV) DETECTION-HIGH RISK TYPES (06/28/2023 13:00 EST) HPV other High Risk types, PCR Negative Negative 07/16/2023 18:31 EST [facility] Comment:No E6 or E7 mRNA is detected from HPV types 16,18,31,33,35,39,45,51,52,56,58,59,66, and 68 by accounting specialist mediated amplification. Pap Test CERVIX UTERI STRUCTURE / Unknown 06/28/2023 13:00 EST 07/16/2023 10:37 EST Leidy Stoneyuki ASKEW MICROBIOLOGY - GENER AL ORDERABLES [facility] [address] [place] [address] * PAP TEST (06/28/2023 13:00 EST) Specimens A. Cervix and/or Endocervix , ThinPrep Imaging System with Manual Evaluation 07/16/2023 18:31 [facility] Specimen Adequacy Satisfactory for Evaluation - transformation zone component present 07/16/2023 18:31 [facility] General Categorization Negative for intraepithelial lesion or malignancy 07/16/2023 18:31 [facility] Descriptive Diagnosis Reactive cellular changes associated with inflammation present (includes repair). 07/16/2023 18:31 [facility] Attestation By the signature below, the attending physician certifies that they have personally conducted a gross and/or microscopic examination of the described specimens and rendered or confirmed the above diagnosis. 07/16/2023 18:31 [facility] at 1831 Clinical History See below 07/16/20 23 18:31 [facility] HPV The result for the Human Papillomavirus (HPV) Detection-High Risk Types is Negative. No E6 or E7 mRNA is detected from HPV types 16,18,31,33,35,39 ,45,51,52,56,58,5 9,66, and 68 by accounting specialist mediated amplification.Margret ting was performed on specimen [id number] and was resulted on 07/16/2023 1831 EST by [facility], LAB INSTRUMENT RESULTS IN 07/16/2023 18:31 [facility] Performing Lab [facility] 07/16/2023 18:31 [facility] Scanned Images 07/16/2023 18:31 EST [facility] Pap Test CERVIX UTERI STRUCTURE / Unknown 06/28/2023 13:00 EST 07/05/2023 10:12 EST Leidy Aldridge [employer] PATHOLOGY ORDERABLES [facility] [address] [place] [address] documented in this encounter Visit Diagnoses Diagnosis Encounter for other general examination documented in this encounter Care Teams Manufacturing Maintenance Technician Relationship Specialty Start Date End Date Unknown, Provider, PCP - General 07/01/09 documented as of this encounter
--- OUTSIDE RECORDS SUMMARY | 2024-06-05 19:10 | XMS_ITS | Clinical Summary ---
Author Organization [facility] Address [address] [place] [address] Care Team Providers Care Garland Maker Name Role Phone Unknown, Provider Primary Care Provider [phone] Encounters Date Type Department Care Team Description 06/05/2024 Lab Requisition [facility] Pathology & Laboratory Medicine - [facility] [address] [place] [address] Outr Resulting Lab, Provider from Last 3 Months Social History Tobacco Use Types Packs/Day Years Used Date Smoking Tobacco: Never Assessed Sex and Gender Information Value Date Recorded Sex Assigned at Not on file Gender Identity Not on file Sexual Orientation Not on file Plan of Treatment Health Maintenance Due Date Last Done Comments Hepatitis C Screen 1980 Hepatitis B Vaccine (1 of 3 - 19+ 3-dose series) 09/06 COVID-19 Vaccine ( season) 2024 Care Teams Garland Maker Relationship Specialty Start Date End Date Unknown, Provider, PCP - General 07/01/09
--- OUTSIDE RECORDS SUMMARY | 2024-06-05 19:10 | XMS_ITS | Encounter Summary ---
Author [place] [address] Care Team Providers Care Network Developer Name Role Phone Sania Bolanos APRN Primary Care Provider [phone] Encounter Details Date Type Department Care Team (Latest Contact Info) Description 11/01/2017 12:25 PM EDT - 11/01/2017 11:59 PM EDT Hospital En[place] [address] Mark Valles [place] Varicose veins of right lower extremity with pain Discharge Disposition: Home Social History Tobacco Use Types Packs/Day Years Used Date Smoking Tobacco: Never Smokeless Tobacco: Never Alcohol Use Standard Drinks/Week Comments No 0 (1 standard drink = 0.6 oz pur e alcohol) Sex and Gender Information Value Date Recorded Sex Assigned at Not on file Gender Identity Not on file Sexual Orientation Not on file documented as of this encounter Medications at Time of Discharge Medication Sig Dispensed Refills Start Date End Date levothyroxine (SYNTHROID) 88 mcg Tablet Take 88 mcg by mouth daily. documented as of this encounter Plan of Treatment Not on file documented as of this encounter Procedures Procedure Name Priority Date/Time Associated Diagnosis Comments DUPLEX FOR DVT, LEG, UNILAT Routine 11/01/2017 12:28 PM EDT Varicose veins of right lower extremity with pain documented in this encounter Results * Duplex for DVT, Leg, Unilat (11/01/2017 12:28 PM EDT) VB Text Report Department: Vascular Surgery Lab Patient: [id number] (JOSE BATISTA) CPT: 93958 ICD10: I83.811 Referring Physician: SUMAN MONTES DE OCA MD ?? Phone: Indications: 3 days s/p VNUS ICD10 Diagnosis Code: I83.811 Right- There is no flow in the great saphenous vein up to 0.43 cm of the saphenofemoral junction. The 1st branch off the GSV is patent. Patent common femoral vein and popliteal vein with spontaneous, respirophasic Doppler waveforms that respond normally to augmentation maneuvers. The common femoral vein, saphenofemoral junction, femoral vein through the thigh and popliteal vein are fully compressible. Interpretation: Right- No evidence of lower extremity deep venous thrombosis groin to knee. There is no flow in the great saphenous vein up to 0.43 cm of the saphenofemoral junction. The 1st branch off the GSV is patent. This is the first pot-op exam. Electronically Signed by: ROSHNI CHERRY on 2017-11-04 07:33:21 AM [facility] VB Text Report End of Report [facility] 11/01/2017 12:2 8 PM EDT Suman Montes De Oca MD VASCULAR ORDERABLES [facility] documented in this encounter Visit Diagnoses Diagnosis Varicose veins of right lower extremity with pain Varicose veins of lower extremities with other complications documented in this encounter Care Teams Network Developer Relationship Specialty Start Date End Date Sania Bolanos APRN PCP - General Family Medicine 08/02/17 documented as of this encounter
--- OUTSIDE RECORDS SUMMARY | 2024-06-05 19:10 | XMS_ITS | Encounter Summary ---
Author Organization [facility] Address [address] [place] [address] Care Team Providers Care Consular Officer Name Role Phone Unavailable Primary Care Provider Unavailabl e Encounter Details Date Type Department Care Team (Late st Contact Info) Description 02/16/2008 Before PRISM Converted Visit (Maple) [facility] - Maple conversion [address] [place] [address] Annita Villegas [place], [place] [address] Social History Tobacco Use Types Packs/Day Years Used Date Smoking Tobacco: Never Assessed Sex and Gender Information Value Date Recorded Sex Assigned at Not on file Gender Identity Not on file Sexual Orientation Not on file documented as of this encounter Plan of Treatment Not on file documented as of this encounter Procedures Procedure Name Priority Date/Time Associated Diagnosis Comments CYTOPATHOLOGY Routine 02/16/2008 0:00 EDT documented in this encounter Results * CYTOPATHOLOGY (02/16/2008 0:00 EDT) Pathology Report: CYTOPATHOLOGY REPORT ? Reports generated via electronic interface contain original data; ? however they are lacking the format of the original report. ? Caution should be taken when reading/interpreti ng unformatted reports. ? Name: ? JOSE BATISTA ? Accession #: ? [id number] ? : ? 1980 (Age: 27) ??F ?Collect Date: ? 02/16/2008 ? Location: ? [facility] ? Receive Date: ? 02/17/2008 ? Provider: ?ANNITA VILLEGAS CNM ? Copy to: ? Specimen/Source: ?ThinPrep Pap Test, Cervix/Endocervix, processed on Cytyc ThinPrep Imaging System, with manual evaluation ? Last Menstrual Period: ? 7/25/07 ? Menstrual/Pregnanc y Status: ? Post ? Hormonal/Contracep tive Status: ? Yes ? Previous Gynecologic Pathology: ? ASC-US: 4/05, 10/05 HPV neg ? Yes: 10/06 Pap neg. ? Other: ? HPVA - HPV testing requested if ASC-US on the current ThinPrep Pap test. ? Additional clinical information: 10/05 HPV neg ? SPECIMEN ADEQUACY ? Satisfactory for Evaluation ? - transformation zone component present ? GENERAL CATEGORIZATION ? Negative for Intraepithelial Lesion or Malignancy ? Document reviewed and electronically signed by: ? Volodymyr Cash, CT(ASCP) ? Report Date: ??02/18/2008 14:18 ? End of Report ? [facility] 02/16/2008 02/17/2008 Annita Villegas CNM PATHOLOGY ORDERABLES [facility] [address] [place] [address] documented in this encounter Visit Diagnoses Not on filedocumented in this encounter
--- OUTSIDE RECORDS SUMMARY | 2024-06-05 19:10 | XMS_ITS | Encounter Summary ---
Author Organization [facility] Address [address] [place] [address] Care Team Providers Care Senior Project Coordinator Name Role Phone Unknown, Provider Primary Care Provider [phone] Encounter Details Date Type Department Care Team ([facility] st Contact Info) Description 06/30/2019 Lab Requisition [facility] Pathology & Laboratory Medicine - [facility] [address] [place] [address] Unknown, Provider, Social History Tobacco Use Types Packs/Day Years Used Date Smoking Tobacco: Never Assessed Sex and Gender Information Value Date Recorded Sex Assigned at Not on file Gender Identity Not on file Sexual Orientation Not on file documented as of this encounter Plan of Treatment Not on file documented as of this encounter Procedures Procedure Name Priority Date/Time Associated Diagnosis Comments MEASLES IGG AB Routine 06/30/2019 13:25 EST documented in this encounter Results * MEASLES IGG AB (06/30/2019 13:25 EST) Measles IgG Ab Positive See Note 07/01/2019 14:32 EST [facility] Comment:Presence of detectab le measles virus IgG antibodies. Blood VENOUS BLOOD / Unknown 06/30/2019 13:25 EST 06/30/2019 20:20 EST Provider Unknown IMMUNOLOGY AND SEROL ELIZABETH ORDERABLES [facility] [address] [place] [address] documented in this encounter Visit Diagnoses Not on filedocumented in this encounter Care Teams Senior Project Coordinator Relationship Specialty Start Date End Date Unknown, Provider, PCP - General 07/01/09 documented as of this encounter
--- OUTSIDE RECORDS SUMMARY | 2024-06-05 19:10 | XMS_ITS | Encounter Summary ---
Author Organization [facility] Address [address] [place] [address] Care Team Providers Care Simulation Engineer Name Role Phone Unknown, Provider Primary Care Provider [phone] Encounter Details Date Type Department Care Team (Late st Contact Info) Description 06/05/2024 Lab Requisition [facility] Pathology & Laboratory Medicine - [address] [address] Outr Resulting Lab, Provider Social History Tobacco Use Types Packs/Day Years Used Date Smoking Tobacco: Never Assessed Sex and Gender Information Value Date Recorded Sex Assigned at Not on file Gender Identity Not on file Sexual Orientation Not on file documented as of this encounter Plan of Treatment Pending Results Name Type Priority Associated Diagnoses Date /Time FECAL BACTERIAL PATHOGENS BY PCR Microbiology Routine 06/05/2024 7:30 EDT documented as of this encounter Visit Diagnoses Not on filedocumented in this encounter Care Teams Simulation Engineer Relationship Specialty Start Date End Date Unknown, Provider, PCP - General 07/01/09 documented as of this encounter
--- OUTSIDE RECORDS SUMMARY | 2024-06-05 19:10 | XMS_ITS | Encounter Summary ---
Author Organization [facility] Address [facility] [place] [address] Care Team Providers Care Riveter Helper Name Role Phone Sania Bolanos APRN Primary Care Provider [phone] Reason for Visit * Reason Comments Wound Check s/p gsv ablation Encounter Details Date Type Department Care Team (Late st Contact Info) Description 12/05/2017 2:00 PM EDT Office Visit [place] [id number] Mickie Canas APRN [facility] [address] Post-operative state Social History Tobacco Use Types Packs/Day Years [...] Pulse 62 12/05/2017 2:10 PM EDT Temperature - - Respiratory Rate 18 12/05/2017 2:10 PM EDT Oxygen Saturation - - Inhaled Oxygen Concentration - - Weight 54.4 kg (120 lb) 12/05/2017 2:10 PM EDT Height 58 cm (1' 10.84) 12/05/2017 2:10 PM EDT Body Mass Index 161.8 12/05/2017 2:10 PM EDT documented in this encounter Progress Notes * Mickie Canas APRN - 12/05/2017 2:00 PM EDT Post op 10/30/17 RIGHT GSV ablation RIGHT cluster stab phlebectomies (less than 10 incisions) Doing well Back doing all regular activities. Denies pain, fever, chills, SOB, problems with incisions swelling Right leg incisions well healed. No edema. +2 palp pedal pulses. Assessment/Plan: 37 yo female s/p 10/30/17 RIGHT GSV ablation RIGHT cluster stab phlebectomies (lessthan 10 incisions) Happy with results No problems RTC PRN. documented in this encounter Plan of Treatment Not on file documented as of this encounter Visit Diagnoses Diagnosis Post-operative state Other postprocedural status documented in this encounter Care Teams Riveter Helper Relationship Specialty Start Date End Date Sania Bolanos APRN PCP - General Family Medicine 08/02/17 documented as of this encounter
--- OUTSIDE RECORDS SUMMARY | 2024-06-05 19:10 | XMS_ITS | Encounter Summary ---
Author Organization Formerly [facility] Address [facility] [place] [address] Care Team Providers Care Tablet Making Machine Operator Helper Name Role Phone Sania Bolanos APRN Primary Care Provider [phone]- [phone] Reason for Visit * Auth/Cert Specialty Diagnoses [...] Expiration Date Visits Re quested Visits Authorized [id number] 1 1 Encounter Details Date Type Department Care Team (Late st Contact Info) Description 10/30/2017 7:31 AM EDT - 10/30/2017 9:59 AM EDT Surgery [place] [id number] Suman Montes De Oca MD [facility] [place] [address] ENDOVENOUS ABLATION THERAPY OF INCOMPETENT VEIN, EXTREMITY, FIRST VEIN (WRVU 5.3) Social History Tobacco Use Types Packs/Day Years [...] Sign Reading Time Taken Comments Blood Pressure 106/66 10/30/2017 9:30 AM EDT Pulse 85 10/30/2017 9:00 AM EDT Temperature 36.8 ??C (98.2 ??F) 10/30/2017 9:00 AM ED T Respiratory Rate 16 10/30/2017 9:00 AM EDT Oxygen Saturation 100% 10/30/2017 9:54 AM EDT Inhaled Oxygen Concentration - - Weight 54.4 kg (120 lb) 10/30/2017 6:40 AM EDT Height 172.7 cm (5' 8) 10/30/2017 6:40 AM EDT Body Mass Index 18.25 10/30/2017 6:40 AM EDT documented in this encounter Discharge Instructions * Discharge Instructions* Jasson Bender, RN - 10/30/2017 9:22 AM EDT POST ANESTHESIA INSTRUCTIONS Go home, rest, use caution on stairs. Change positions slowly. Do not smoke if you are alone. Diet light to regular as tolerated today. If nausea occurs start with clear liquids and progress slowly. No driving, operating machinery, alcoholic beverages and no important decisions for 24 hours. Monitor IV site for signs and symptoms of infection: increasing redness, swelling, foul drainage, if occurs contact M.D. Patients who have had endotrachial tubes (this tube, used by anesthesia department, is passed down your throat after you are asleep, to ensure safe air passage during your operation). A sore throat is normal due to the tube. Cold liquids or soothing lozenges will help ease the discomfort. The generalized muscle aches are due to the medication given to you just before the tube is inserted. As the medication wears off, you may develop muscle soreness, which usually goes away in 12-24 hours.Instructions Following Varicose Vein Surgery Wound Care: Bedrest for 4-6 hours following surgery once you get home with legs at level of heart or elevated. Keep on AMMY wraps for the next 3 days. No bathing for 3 days. Keep legs elevated or at level of heart as much as possible over the next 3-5 days. Limit amount of time sitting up with legs down or walking as much as possible for the next week (to avoid increasing pressure in the veins). After 3 days you may take off AMMY wraps and gauze, may shower, and pat dry immediately following. Put AMMY wraps back on after showering and use over next 1-2 weeks as needed for swelling or discomfort. Bruising of the skin is normal and will clear up over the next several weeks. You may use ice to the area as needed for tenderness/swelling. Keep steri-strips (pieces of tape on the skin) on until they fall off on their own. You may trim them back with scissors as they begin to peel up. Activity: Try to limit walking, standing up, or sitting with legs dangling below you as much as possible for the first week. When sitting try to prop leg(s) up on pillows and/or lie down as much as possible. No vigorous activity (such as jogging) for at least 2-4 weeks or until cleared to do so at you follow-up appointment. Call Doctor for: Please call if you notice worsening redness or drainage from incision(s) lasting longer than 5 days after your surgery, any foul-smelling drainage from the incision, pain not controlled by pain medications, or for any fevers greater than 101.3 F. Pain Medication: No driving for 8 hours after any dose of opioid pain medication if one was presecibed for you. You may use ibuprofen (motrin, advil) in addition to this medication if your pain is not totally controlled. Follow-up: 1) You will have a doppler ultrasound in the next 2-3 days here at [facility] to ensure no DVT after the venous ablation procedure today 2) You will have a follow-up appointment scheduled with Dr. Montes De Oca in 4 weeks. Appointment will be mailed to you and/or you may be called with a date and time from the clinic. If you do not hear from the clinic within 1 week of your appointment please call to confirm date and time of your appointment. documented in this encounter Medications at Time of Discharge Medication Sig Dispensed Refills Start Date End Date levothyroxine (SYNTHROID) 88 mcg Tablet Take 88 mcg by mouth daily. documented as of this encounter Progress Notes * Verona Cummings RN - 10/30/2017 11:05 AM EDT Assumed care of patient. Report received from Jasson Bender RN. documented in this encounter H&P Notes * Amy Nelson MD - 10/30/2017 7:14 AM EDT PRE-OPERATIVE HISTORY AND PHYSICAL for ADMISSION, OBSERVATION OR PROCEDURE Date of : 1980 Age: 37 y.o. PCP: Sania Bolanos APRN Presenting Diagnosis/Chief Complaint: No chief complaint on file. History of Present Illness: Shannan Batista is a 37 y.o. female who presents for pre-operative examination. Please see Dr. Montes De Oca's note for full details of the patient's specific problem on 10/24/17 and Mickie Canas's BLOW PIT OPERATOR noteon 08/02/17. In brief, Patient has history of RLE symptomatic and painful varicose veins. She has attempted to use daily compression stocking to help alleviate the pain without great success. Risks and benefits were discussed with the patient about surgery versus medical management. The patient opted for surgical intervention 1) R GSV RFA ablation 2) Stab phlebectomy under general anesthesia PMHx: Hypothyroid on synthroid Patient Active Problem List Diagnosis Code ??? Acne vulgaris L70.0 ??? Varicose veins of right lower extremity with pain I83.811 Past Medical History: Diagnosis Date ??? Varicose veins of both lower extremities with pain 08/02/2017 No past surgical history on file. Home Medications: Prescriptions Prior to Admission Medication Sig Dispense Refill Last Dose ??? levothyroxine (SYNTHROID) 88 mcg Tablet Take 88 mcg by mouth daily. 10/30/2017 at Unknown time Allergies: No Known Allergies Family History: Non contributory No family history on file. Social History: Alcohol: social drinker Tobacco: never Drug: no history of illicit drug use Review of Systems: complete 10 system ROS performed with pertinent findings below. A comprehensive review of systems was negative. Physical Exam: VITALS: Temperature Temp: 36.8 ??C (98.2 ??F) Heart Rate Heart Rate: 70 Blood Pressure BP: 120/71 Respiratory Rate Resp: 16 SpO2 SpO2: 100 % General: alert, appears stated age and cooperative Pulmonary: Normal, equal, clear breath sounds bilaterally and no crepitus Cardiovascular: Regular rate and rhythm, S1S2 present or without murmur or extra heart sounds Assessment and Plan: 37 y.o. female with the above problem, plan to proceed to OR with Dr. Montes De Oca for1) R GSV ablation with RFA and 2) Stab phlebectomies - The patient is booked, marked, and consented. All of her questions have been answered to the bestof my knowledge. She is ready to proceed with the operation. - Explained to the patient she will need to return in 2-3 days for an ultrasound Amy Nelson MD, PGY-1 Vascular Surgery Pager #: [phone] documented in this encounter Miscellaneous Notes * Op Note - Amy Nelson MD - 10/30/2017 9:09 AM EDT [facility] Operative Note Patient Name: Shannan Batista : [id number] MR#: [id number] ?? Case Date: 10/30/2017 ?? Surgeon: Surgeon(s) and Role: * Suman Montes De Oca MD - Primary * Amy Nelson MD - Resident-Acct Exec ?? Preoperative diagnosis: varicose veins ?? Postoperative diagnosis: varicose veins ?? Procedure(s) (LRB): ENDOVENOUS ABLATION THERAPY OF INCOMPETENT VEIN, EXTREMITY, FIRST VEIN (WRVU 5.3) (Right) LIGATION, DIVISION, AND\OR EXCISION OF VARICOSE VEIN CLUSTERS (WRVU 3.93) (Right) ?? 1) RIGHT GSV ablation 2) RIGHT cluster stab phlebectomies (less than 10 incisions) ?? Anesthesia: General ?? Findings: 1) GSV ablation 2) Right superficial vein varicosity at level of medial posterior knee to medial ankle ?? Complications: none ?? Estimated Blood Loss: 2mL ?? Specimens removed during surgery: None ? Fluids: Intraprocedure Crystalloid Total None ?? PRBCs: none (See Anesthesia Record/Report for Other Blood Products) ? Urine Output: (no blood products) ?? Drains: none ?? Disposition: awakened from anesthesia, extubated and taken to the recovery room in a stable condition, having suffered no apparent untoward event. ?? Condition: doing well without problems ?? (Please see the Surgical Encounter Summary for any Implant and Specimen details pertinent to this patient.) ?? Infection Bundle used? No Surgical Closure: Primary Closure - closure of ALL tissue levels during the original surgery regardless of wires, wickes, drains, or other devices extruding through the incision Primary closure with steri strips HPI/Surgical Indications: Patient has history of RLE symptomatic and painful varicose veins. She has attempted to use daily compression stocking to help alleviate the pain without great success. Risks and benefits were discussed with the patient about surgery versus medical management. The patient opted for surgical intervention ?? 1) R GSV RFA ablation 2) Stab phlebectomy under general anesthesia Procedure Description: The course of the greater RIGHT saphenous vein was mapped out under US guidance from the saphenofemoral junction to the distal thigh. Percutaneous access was secured to the distal GSV at this location via micropuncture technique under ultrasound guidance. This was then up-sized to a 7F sheath over a .035 glide wire using seldinger technique. Wire was advanced to the GSV under US guidance. VNUS catheter was then advanced over wire just distal to the second branch arising from the GSV. Wire removed the wire and the course of the GSV tumesced with 150cc of lidocaine/epinephrine soution in sterile saline. The GSV was then sequentially ablated. We then turned out attention to previously marked venous varicosites. Less than 10 incisions were made on the right calf with #11 blade and the veins tied and avulsed. Hemostasis achieved with local pressure. Incisions were than closed with steri-strips. Legs were wrapped from the toes to the groinwith kerlix and AMMY wraps. Amy Nelson MD Vascular Surgery Pager #: [phone] Associated attestation - Suman Montes De Oca MD - 11/04/2017 11:49 AM EDT Attestation: Case Date: 10/30/2017 I was present and I participated during the entire procedure (does not need to include opening and closing). Suman Montes De Oca MD 11/04/2017 * Brief Op Note - Amy Nelson MD - 10/30/2017 9:06 AM EDT Brief Operative Note Patient Name: Shannan Batista : [id number] MR#: [id number] Case Date: 10/30/2017 Surgeon: Surgeon(s) and Role: * Suman Montes De Oca MD - Primary * Amy Nelson MD - Resident-Acct Exec Preoperative diagnosis: varicose veins Postoperative diagnosis: varicose veins Procedure(s) (LRB): ENDOVENOUS ABLATION THERAPY OF INCOMPETENT VEIN, EXTREMITY, FIRST VEIN (WRVU 5.3) (Right) LIGATION, DIVISION, AND\OR EXCISION OF VARICOSE VEIN CLUSTERS (WRVU 3.93) (Right) 1) RIGHT GSV ablation 2) RIGHT cluster stab phlebectomies (less than 10 incisions) Anesthesia: General Findings: 1) GSV ablation 2) Right superficial vein varicosity at level of medial posterior knee to medial ankle Complications: none Estimated Blood Loss: 2mL Specimens removed during surgery: None Fluids: Intraprocedure Crystalloid Total None PRBCs: none (See Anesthesia Record/Report for Other Blood Products) Urine Output: (no blood products) Drains: none Disposition: awakened from anesthesia, extubated and taken to the recovery room in a stable condition, having suffered no apparent untoward event. Condition: doing well without problems (Please see the Surgical Encounter Summary for any Implant and Specimen details pertinent to this patient.) Infection Bundle used? No Amy Nelson MD Vascular Surgery Pager #: [phone] documented in this encounter Plan of Treatment Not on file documented as of this encounter Procedures Procedure Name Priority Date/Time Associated Diagnosis Comments LIGATION, DIVISION, AND\OR EXCISION OF VARICOSE VEIN CLUSTERS (WRVU 3.93) 10/30/2017 7:31 AM EDT varicose veins ENDOVENOUS ABLATION THERAPY OF INCOMPETENT VEIN, EXTREMITY, FIRST VEIN (WRVU 5.3) 10/30/2017 7:31 AM EDT varicose veins LIGATION, DIVISION, AND\OR EXCISION OF VARICOSE VEIN CLUSTERS Routine 10/30/2017 6:09 AM EDT ENDOVENOUS ABLATION THERAPY OF INCOMPETENT VEIN, EXTREMITY, FIRST VEIN Routine 10/30/2017 6:09 AM EDT documented in this encounter Results * Duplex for DVT, Leg, Unilat (11/01/2017 12:28 PM EDT) VB Text Report Department: Vascular Surgery Lab Patient: [id number] (SHANNAN BATISTA) CPT: 83777 ICD10: I83.811 Referring Physician: SUMAN MONTES DE [...] VASCUBASE documented in this encounter Visit Diagnoses Not on filedocumented in this encounter Administered Medications Inactive Administered Medications - up to 3 most recent administrations Medication Order MAR Action Action Date Dose Rate Site acetaminophen (TYLENOL) tablet 1,000 mg 1,000 mg, Oral, EVERY 8 HOURS SCHEDULED, First dose on Sat10/30/17 at 0930, Until Discontinued, Maximum dose of acetaminophen is 4000 mg from all sources in 24 hours., Routine Given 10/30/2017 10:07 AM EDT 1,000 mg HYDROmorphone (DILAUDID) injection 0.2-0.4 mg 0.2-0.4 mg, Intravenous, EVERY 5 MIN PRN, Starting on Sat10/30/17 at 0930, Until Sat10/30/17 at 1157, Pain, Give 0.2 mg every 5 minutes PRN for mild to moderate pain (1-5) Give 0.4 mg every 5 minutes PRN for moderate to severe pain (6-10). Hold for respiratory rate less than 10 per minute. Maximum dose 4 mg over one hour. If multiple pain medications are ordered, start with hydromorphone or morphine and use fentanyl for breakthrough pain., PACU Recovery, Routine Given 10/30/2017 9:47 AM EDT 0.4 mg Given 10/30/2017 9:37 AM EDT 0.2 mg lactated Ringers infusion 1,000 mL 1,000 mL, at 100 mL/hr, Intravenous, CONTINUOUS, Starting on Sat10/30/17 at 0715, Until Sat10/30/17 at 1157, Day of Surgery (Day of Procedure) New Bag 10/30/2017 7:03 AM EDT 1,000 mLs 100 mL/hr lidocaine (XYLOCAINE) 10 mg/mL (1 %) injection 3 mg 3 mg (0.3 mL), Subcutaneous, ONCE PRN, 1 dose, Starting on Sat10/30/17 at 0647, Until Sat10/30/17 at 0703, for discomfort with PIV insertion, Day of Surgery (Day of Procedure), Routine Given 10/30/2017 7:03 AM EDT 3 mg lidocaine (XYLOCAINE) 10 mg/mL (1 %) injection ONCE PRN, Starting on Sat10/30/17 at 0849, Until Sat10/30/17 at 1358, Intra-Operative (Intra-Procedure), Routine Given 10/30/2017 8:49 AM EDT 12.5 mLs documented in this encounter Active and Recently Administered Medications Times are shown in EDT. Scheduled Medication Order 10/28/2017 10/29/2017 10/30/2017 acetaminophen (TYLENOL) tablet 1,000 mg 1,000 mg, Oral, EVERY 8 HOURS SCHEDULED, First dose on Sat10/30/17 at 0930, Until Discontinued, Maximum dose of acetaminophen is 4000 mg from all sources in 24 hours., Routine 0930 (Due)1007 (Give n - Provider: Jasson Bender RN) ceFAZolin (ANCEF) 2g in dextrose 5% 100 mL (COMPLETED) 2 g, Intravenous, ONCE, 1 dose, On Sat10/30/17 at 0715, Administer over 30 Minutes, Redose every 3 hours if CrCl is greater than 20. Redose every 8 hours if CrCl is less than 20., Day of Surgery (Day of Procedure), Indication for (Active or Suspected): Prophylaxis 0756 (Given - Provid er: Shahbaz Bradford MD) Continuous Medication Order 10/28/2017 10/29/2017 10/30/2017 lactated Ringers infusion 1,000 mL (CANCELED) 1,000 mL, at 100 mL/hr, Intravenous, CONTINUOUS, Starting on Sat10/30/17 at 0715, Until Sat10/30/17 at 1157, Day of Surgery (Day of Procedure) 702 (New Bag - Prov ider: Ysabel Palmer RN) PRN Medication Order 10/28/2017 10/29/2017 10/30/2017 HYDROmorphone (DILAUDID) injection 0.2-0.4 mg (CANCELED) 0.2-0.4 mg, Intravenous, EVERY 5 MIN PRN, Starting on Sat10/30/17 at 0930, Until Sat10/30/17 at 1157, Pain, Give 0.2 mg every 5 minutes PRN for mild to moderate pain (1-5) Give 0.4 mg every 5 minutes PRN for moderate to severe pain (6-10). Hold for respiratory rate less than 10 per minute. Maximum dose 4 mg over one hour. If multiple pain medications are ordered, start with hydromorphone or morphine and use fentanyl for breakthrough pain., PACU Recovery, Routine 09 (Given - Provid er: Jasson Bedner RN)09 (Given - Provider: Jasson Bender RN) lidocaine (XYLOCAINE) 10 mg/mL (1 %) injection 3 mg (COMPLETED) 3 mg (0.3 mL), Subcutaneous, ONCE PRN, 1 dose, Starting on Sat10/30/17 at 0647, Until Sat10/30/17 at 0703, for discomfort with PIV insertion, Day of Surgery (Day of Procedure), Routine 07 (Given - Provid er: Ysabel Palmer RN) lidocaine (XYLOCAINE) 10 mg/mL (1 %) injection (CANCELED) ONCE PRN, Starting on Sat10/30/17 at 0849, Until Sat10/30/17 at 1358, Intra-Operative (Intra-Procedure), Routine 0849 (Given - Provid er: Suman Montes De Oca MD - Comment: mixed with 125 ml NaCl) documented in this encounter Care Teams Tablet Making Machine Operator Helper Relationship Specialty Start Date End Date Sania Bolanos, VERONIKA PCP - General Family Medicine 08/02/17 documented as of this encounter
--- OUTSIDE RECORDS SUMMARY | 2024-06-05 19:10 | XMS_ITS | Encounter Summary ---
Author Organization [facility] Address [facility] [place] [address] Care Team Providers Care Regular Senior Care Provider Name Role Phone Sania Bolanos APRN Primary Care Provider [phone]- [phone] Reason for Visit * Auth/Cert Specialty Diagnoses [...] Expiration Date Visits Re quested Visits Authorized [id number] 1 1 Encounter Details Date Type Department Care Team (Latest Contact Info) Description 10/30/2017 6:05 AM EDT - 10/30/2017 11:58 AM EDT Hospital Encounter [place] [id number] Suman Montes De Oca MD [facility] [place] [address] Varicose veins of right lower extremity with [...] in the next 2-3 days here at [facility] [place] [place] to ensure no DVT after the venous [...] complaint on file. History of Present Illness: Jose Batista is a 37 y.o. female who presents for pre-operative examination. Please see Dr. Montes De Oca's note for full details of the patient's specific problem on 10/24/17 and Mickie Canas's SALES AND MARKETING INTERN noteon 08/02/17. In brief, Patient has history [...] Nelson MD, PGY-1 Vascular Surgery Pager #: [phone] documented in this encounter Miscellaneous Notes * Op Note - Amy Nelson MD - 10/30/2017 9:09 AM EDT [facility] [place] [place] Operative Note Patient Name: Jose Batista : [id number] MR#: [id number] ?? Case Date: 10/30/2017 ?? Surgeon: Surgeon(s) and Role: * Suman Montes De Oca MD - Primary * Amy Nelson MD - Resident-Radial Arm Saw Operator ?? Preoperative diagnosis: varicose veins ?? Postoperative [...] Amy Nelson MD Vascular Surgery Pager #: [phone] Associated attestation - Suman Montes De Oca MD - 11/04/2017 11:49 AM EDT Attestation: Case Date: 10/30/2017 I was present and I participated during the entire procedure (does not need to include opening and closing). Suman Montes De Oca MD 11/04/2017 * Brief Op Note - Amy Nelson MD - 10/30/2017 9:06 AM EDT Brief Operative Note Patient Name: Jose Batista : [id number] MR#: [id number] Case Date: 10/30/2017 Surgeon: Surgeon(s) and Role: * Suman Montes De Oca MD - Primary * Amy Nelson MD - Resident-Radial Arm Saw Operator Preoperative diagnosis: varicose veins Postoperative diagnosis: varicose [...] Amy Nelson MD Vascular Surgery Pager #: [phone] documented in this encounter Plan of Treatment [...] Text Report Department: Vascular Surgery Lab Patient: [id number] (JOSE BATISTA) CPT: 53691 ICD10: I83.811 Referring Physician: SUMAN MONTES DE [...] Suman Montes De Oca [facility] documented in this encounter Visit Diagnoses Diagnosis Varicose veins of right lower extremity with pain Varicose veins of lower extremities with other complications documented in this encounter Administered Medications Inactive Administered [...] Given 10/30/2017 7:03 AM EDT 3 mg documented in this encounter Active and Recently [...] 1157, Day of Surgery (Day of Procedure) 07 (New Bag - Prov ider: Ysabel Palmer [...] fentanyl for breakthrough pain., PACU Recovery, Routine 0937 (Given - Provid er: Jasson Bender RN)0947 (Given - Provider: Jasson Bender RN) lidocaine (XYLOCAINE) 10 mg/mL (1 %) injection 3 mg (COMPLETED) 3 mg (0.3 mL), Subcutaneous, ONCE PRN, 1 dose, Starting on Sat10/30/17 at 0647, Until Sat10/30/17 at 0703, for discomfort with PIV insertion, Day of Surgery (Day of Procedure), Routine 0703 (Given - Provid er: Ysabel Palmer RN) lidocaine (XYLOCAINE) 10 mg/mL (1 %) injection (CANCELED) ONCE PRN, Starting on Sat10/30/17 at 0849, Until Sat10/30/17 at 1358, Intra-Operative (Intra-Procedure), Routine 0849 (Given - Provid er: Suman Montes De Oca MD - Comment: mixed with 125 ml NaCl) documented in this encounter Care Teams Regular Senior Care Provider Relationship Specialty Start Date End Date Sania Bolanos APRN PCP - General Family Medicine 08/02/17 documented as of this encounter
--- OUTSIDE RECORDS SUMMARY | 2024-06-05 19:10 | XMS_ITS | Encounter Summary ---
Author Organization [facility] Address [address] [place] [address] Care Team Providers Care Poultry Vaccinator Name Role Phone Unknown, Provider Primary Care Provider [phone] Encounter Details Date Type Department Care Team (Late st Contact Info) Description 01/24/2024 Lab Requisition [facility] Pathology & Laboratory Medicine - [address] [address] Raul Batista MD [address] [place] [address], [address] [place], [place] [id number] Iron deficiency anemia, unspecified Social History Tobacco Use Types Packs/Day Years Used Date Smoking Tobacco: Never Assessed Sex and Gender Information Value Date Recorded Sex Assigned at Not on file Gender Identity Not on file Sexual Orientation Not on file documented as of this encounter Plan of Treatment Not on file documented as of this encounter Procedures Procedure Name Priority Date/Time Associated Diagnosis Comments SURGICAL PATHOLOGY Today 01/24/2024 7: 40 EDT Iron deficiency anemia, unspecified documented in this encounter Results * SURGICAL PATHOLOGY (01/24/2024 7:40 EDT) Note to Patient The following pathology results have been interpreted by your pathologist and may be available to you before your health provider has had the opportunity to review them. Please allow time for your provider to receive these results and explore management options, if applicable. 01/28/2024 12:[address] [facility] Final Diagnosis A. DUODENUM, BIOPSY: - Duodenal mucosa without significant diagnostic abnormality. B. STOMACH, ANTRUM, BIOPSY: - Antral mucosa with mild non-specific chronic inflammation. - Helicobacter pylori immunostain is negative. C. STOMACH, BODY, BIOPSY: - Oxyntic mucosa with mild non-specific chronic inflammation. - No histologic evidence of Helicobacter organisms. 01/28/2024 12:29 [facility] Attestation By the signature below, the attending physician certifies that they have 1) personally conducted a gross and/or microscopic examination of the described specimen(s), and/or personally interpreted the results of laboratory testing of the described specimen(s), and 2) personally rendered or confirmed the above diagnosis. 01/28/2024 12:29 [facility] at 1229 Microscopic Description ANTIBODY(CLONE)(BL OCK):RESULT H pylori (Rabbit Monoclonal (SP48), [place]) (B1): Negative NOTE: One or more of the reagents used in immunoperoxidase testing in this case may not have been cleared or approved by the U.S. Food and Drug Administration (FDA). The FDA has determined that such clearance or approval is not necessary. These tests are used for clinical purposes. They should not be regarded as investigational or for research. These reagents' performance characteristics have been determined by [facility] and/or by the referring laboratory. The positive and negative controls worked appropriately. If immunoperoxidase staining has been performed on alcohol fixed cytology specimens, which has not been fully validated, the assays should be interpreted with caution and correlated with clinical data. This laboratory is certified under the Clinical Laboratory Improvement Amendments of 1988 (CLIA-88) as qualified to perform high complexity clinical laboratory testing. 01/28/2024 12:29 [facility] Clinical History GERD/anemia; R/O celiac; R/O H. Pylori 01/28/2024 12:29 [facility] Gross Description A. Received in formalin labelled with proper patient identification (initials S, K) and 1. Duodenum bx are 2 bynum-brown tissues (0.4 x 0.1 x 0.1 cm and 0.3 x 0.2 x 0.1 cm). Entirely submitted in A1. B. Received in formalin labelled with proper patient identification (initials S, K) and 2. Antrum bx is a single bynum tissue (0.5 x 0.4 x 0.1 cm). Submitted intact in B1. C. Received in formalin labelled with proper patient identification (initials S, K) and 3. Body of stomach bx are 3 bynum tissues (0.3 x 0.1 x 0.1 cm to 0.2 x 0.1 x 0.1 cm). Entirely submitted in C1. Aisha Weaver 01/25/2024 8:56 01/28/2024 12:[address] [facility] Performing Lab [facility] 12:[address] [facility] Scanned Images 01/28/2024 12:[address] [facility] Tissue STOMACH STRUCTURE / Unknown 01/24/2024 7:40 EDT 01/24/2024 17:47 EDT Tissue specimen (specimen) STOMACH STRUCTURE / Unknown 01/24/2024 7:40 EDT 01/24/2024 17:47 EDT Tissue specimen (specimen) STOMACH STRUCTURE / Unknown 01/24/2024 7:40 EDT 01/24/2024 17:47 EDT Raul Batista MD PATHOLOGY ORDERABLES [facility] [address] [place] [address] documented in this encounter Visit Diagnoses Diagnosis Iron deficiency anemia, unspecified documented in this encounter Care Teams Poultry Vaccinator Relationship Specialty Start Date End Date Unknown, Provider, PCP - General 07/01/09 documented as of this encounter
--- OUTSIDE RECORDS SUMMARY | 2024-06-05 19:10 | XMS_ITS | Encounter Summary ---
Author Organization [facility] [place] [address] Care Team Providers Care Lot Worker Name Role Phone Sania Bolanos APRN Primary Care Provider [phone] Encounter Details Date Type Department Care Team (Late st Contact Info) Description 09/25/2017 Orders Only [place] [id number] Brenda Lawrence RN Varicose veins of right lower extremity with pain Social History Tobacco Use Types Packs/Day Years Used Date Smoking Tobacco: Never Smokeless Tobacco: Never Sex and Gender Information Value Date Recorded Sex Assigned at Not on file Gender Identity Not on file Sexual Orientation Not on file documented as of this encounter Plan of Treatment Not on file documented as of this encounter Results * LE Unilateral Valvular Incomp Study (10/24/2017 8:33 AM EDT) VB Text Report Department: Vascular Surgery Lab Patient: [id number] (JOSE BATISTA) CPT: 74087 ICD10: I83.811 Referring Physician: DALLAS HERNANDEZ ?? Indications: ??RIGHT symptomatic varicose veins, ? venous insufficiency ICD10 Diagnosis Code: I83.811 Findings: Right ?Reflux?Diameter (mm) ??Depth (mm) ?? Common Femoral Vein ??Reflux ? Femoral Vein ? Reflux ? Popliteal ?Competent ? GSV, Near SFJ ?Reflux ?10.8 ? 8.1 ?? GSV, Proximal Thigh ??Reflux ? 4.6 ? 8.0 ?? GSV, Mid Thigh ? Reflux ? 4.2 ? 6.0 ?? GSV, Distal Thigh ?Reflux ? 4.1 ? 6.5 ?? GSV, ??Knee ? Reflux ? 4.5 ? 5.8 ?? GSV Prox Calf ?Reflux ? 2.2 ? 6.4 ?? Interpretation: RIGHT: There is reflux >1.5 sec in the common femoral vein and femoral vein in the thigh consistent with deep venous valvular incompetence. No evidence of common femoral, femoral, or popliteal DVT. There is reflux (longest time >3.0 sec) in the great saphenous vein vein consistent with superficial venous valvular incompetence. There are multiple varicosities associated with the GSV in the proximal calf that course distally to the ankle. Comparison: ??No previous study in our vascular lab database for comparison. Electronically Signed by: CIARRA AMARO M.D. on 2017-10-24 10:15:25 AM [facility] VB Text Report End of Report [facility] 10/24/2017 8:33 AM EDT Dallas Hernandez MD VASCULAR ORDERABLES [facility] documented in this encounter Visit Diagnoses Diagnosis Varicose veins of right lower extremity with pain Varicose veins of lower extremities with other complications documented in this encounter Care Teams Lot Worker Relationship Specialty Start Date End Date Sania Bolanos APRN PCP - General Family Medicine 08/02/17 documented as of this encounter
--- OUTSIDE RECORDS SUMMARY | 2024-06-05 19:10 | XMS_ITS | Encounter Summary ---
Author Organization [facility] [place] [address] Care Team Providers Care Logistics Officer Name Role Phone Annita Church MD Primary Care Provider [phone] Reason for Visit * Reason Comments Acne Encounter Details Date Type Department Care Team (Late st Contact Info) Description 01/15/2011 9:15 AM EDT Office Visit Dermatology [address] [facility] [address] [place], [place] [id number] Wallace Chawla MD [address] [place] [address] RD, [place] [address] Acne vulgaris (Primary Dx) Social History Tobacco Use Types Packs/Day Years Used Date Smoking Tobacco: Never Assessed Sex and Gender Information Value Date Recorded Sex Assigned at Not on file Gender Identity Not on file Sexual Orientation Not on file documented as of this encounter Progress Notes * Wallace Chawla MD - 01/15/2011 10:14 AM EDT Problem: Follow-up acne vulgaris. Mariela follows up and is not doing as well as she would like with the tetracycline 500 mg one by mouth twice a day. She's been using this product after stopping spironolactone, which was associated with a sore throat. Physical examination today reveals a pleasant, fair skinned 30-year-old woman who has a few mild inflammatory papules diffusely on the face. She does have some flaring around her menstrual cycle. Assessment and plan: Acne vulgaris, mild to moderate, closed comedonal and inflammatory papules. A.Pt would like to retry the spironolactone as she and I both feel that her sore throat was not related to the spironolactone. Take 100 mg by mouth every morning for a week, then one by mouth twice aday thereafter, #60 dispensed with 2 refills. B. Continue benzoyl peroxide 2.5% water-based gel to face nightly after washing, 60 g given, with no refills. Increase from tretinoin 0.1% cream to the 0.025% gel, apply to face each bedtime, one hour after washing. 15 g dispensed with 2 refills return to clinic in 2 months for repeat check. documented in this encounter Plan of Treatment Not on file documented as of this encounter Visit Diagnoses Diagnosis Acne vulgaris- Primary Other acne documented in this encounter Care Teams Logistics Officer Relationship Specialty Start Date End Date Annita Church MD [address] [place] [address] PCP - General 07/04/10 08/01/17 documented as of this encounter
--- OUTSIDE RECORDS SUMMARY | 2024-06-05 19:10 | XMS_ITS | Encounter Summary ---
Author Organization [facility] Address [address] [place] [address] Care Team Providers Care Motor Vehicle Technician Name Role Phone Unknown, Provider Primary Care Provider [phone] Encounter Details Date Type Department Care Team ([facility] st Contact Info) Description 12/07/2023 Lab Requisition [facility] Pathology & Laboratory Medicine - [address] [address] Outr Resulting Lab, Provider Social History Tobacco [...] Procedure Name Priority Date/Time Associated Diagnosis Comments TRANSFERRIN Routine 12/06/2023 15:35 EDT documented in this encounter Results * TRANSFERRIN (12/06/2023 15:35 EDT) Transferrin 289 201 - 352 mg/dL 12/09/2023 9:55 EDT [facility] Blood VENOUS BLOOD / Unknown 12/06/2023 15:35 EDT 12/07/2023 21:30 EDT Provider Outr Resulting Lab CHEMISTRY & BLOOD GAS ORDERABLES [facility] [address] [place], [place] [address] documented in this encounter Visit Diagnoses Not on filedocumented in this encounter Care Teams Motor Vehicle Technician Relationship Specialty Start Date End Date Unknown, Provider, PCP - General 07/01/09 documented as of this encounter
--- OUTSIDE RECORDS SUMMARY | 2024-06-05 19:10 | XMS_ITS | Encounter Summary ---
Author Organization [facility] Address [address] [place] [address] Care Team Providers Care Back Panel Padder Name Role Phone Unknown, Provider Primary Care Provider [phone] Encounter Details Date Type Department Care Team (Late st Contact Info) Description 02/23/2010 Results Only [facility] Services - [facility] [address] [place], [place] [address] Estelle Sampson, [facility] [address] [place] [address] Social History Tobacco Use Types [...] Priority Date/Time Associated Diagnosis Comments CYTOPATHOLOGY Routine 02/23/2010 0:00 EDT documented in this encounter Results * CYTOPATHOLOGY (02/23/2010 0:00 EDT) Pathology Report: CYTOPATHOLOGY REPORT ? Reports generated via electronic interface contain original data; ? however they are lacking the format of the original report. ? Caution should be taken when reading/interpreti ng unformatted reports. ? Name: ? JOSE BATISTA ? Accession #: ? [id number] ? : ? 1980 (Age: 29) ??F ?Collect Date: ? 02/23/2010 ? Location: ? [facility] ? Receive Date: ? 02/24/2010 ? Provider: ?ESTELLE FRANCISCO BINDER STRIPPER HAND ? Copy to: ? Specimen/Source: ?Pap Test, Cervix/Endocervix, ThinPrep Imaging System ? with manual evaluation ? Last Menstrual Period: ? 07/08/10 ? Previous Gynecologic Pathology: ? ASC-US: 04/05 ? ASC-US: HPV neg. 10/05 ? Other: ? HPVA - HPV testing requested if ASC-US on the current ThinPrep Pap test. ? SPECIMEN ADEQUACY ? Satisfactory for Evaluation ? - transformation zone component present ? GENERAL CATEGORIZATION ? Negative for Intraepithelial Lesion or Malignancy ? Document reviewed and electronically signed by: ? Volodymyr Cash, CT(ASCP) ? Report Date: ??03/01/2010 12:38 ? End of Report ? [facility] 02/23/2010 02/24/2010 Estelle Sampson BINDER STRIPPER HAND PATHOLOGY ORDERABLES [facility] [address] [place] [address] documented in this encounter Visit Diagnoses Not on filedocumented in this encounter Care Teams Back Panel Padder Relationship Specialty Start Date End Date Unknown, Provider, PCP - General 07/01/09 documented as of this encounter
--- OUTSIDE RECORDS SUMMARY | 2024-06-05 19:10 | XMS_ITS | Encounter Summary ---
Author Organization [facility] Address [address] [place] [address] Care Team Providers Care It Service Technician Name Role Phone Unknown, Provider Primary Care Provider [phone] Encounter Details Date Type Department Care Team ([facility] st Contact Info) Description 03/19/2018 Results Only [facility] [phone] AdjLeidy mirza, SHUTTLE FITTING SUPERVISOR [address] [place] [address] Social History Tobacco Use Types Packs/Day Years [...] Diagnosis Comments PAP TEST- RESULT ONLY Routine 03/19/2018 0:00 EDT documented in this encounter Results * PAP TEST- RESULT ONLY (03/19/2018 0:00 EDT) Pathology Report: CYTOPATHOLOGY REPORT Reports generated via electronic interface contain original data; however they are lacking the format of the original report. Caution should be taken when reading/interpreti ng unformatted reports. Name: ? JOSE BATISTA ? Accession #: ? [id number] ? : ? 1980 (Age: 37) ??F ?Collect Date: ? 03/19/2018 ? Location: ? [facility] ? Receive Date: ? 03/20/2018 ? Provider: LEIDY CHAKRABORTYTeagan SHUTTLE FITTING SUPERVISOR Copy to: ? Final Report SPECIMEN ADEQUACY ? Satisfactory for Evaluation - transformation zone component present GENERAL CATEGORIZATION ? Negative for Intraepithelial Lesion or Malignancy INTERPRETATION ? Reactive cellular changes associated with inflammation present (includes repair). Last Menstrual Period: 03/12/18 Specimen/Source: ??Pap Test, Cervix, ThinPrep Imaging System with manual evaluation Document reviewed and electronically signed by: ? STEPHANIE CARRASQUILLO MD ? Report ??Date: 04/03/2018 12:19 HPV with Pap Test ? Date Ordered: ? 04/03/2018 ? Status: ?? Signed Out ?Date Complete: ? 04/04/2018 ? By: ??System Interface ? Date Reported: ? 04/04/2018 ? Interpretation RESULT: Negative for HPV. No E6 or E7 mRNA is detected from HPV types 16,18,31,33,35, 39,45,51,52,56,58, 59,66, and 68 by capacity planner mediated amplification. Comments Document reviewed and electronically signed by: ? System Interface ? Report date: 04/04/2018 By the signature above, the attending physician certifies that he/she has personally conducted a gross and/or microscopic examination of the described specimens and rendered or confirmed the above diagnosis. End of Report [facility] 03/19/2018 03/20/2018 Leidy Aldridge SHUTTLE FITTING SUPERVISOR PATHOLOGY ORDERABLES [facility] [address] [place] [address] documented in this encounter Visit Diagnoses Not on filedocumented in this encounter Care Teams It Service Technician Relationship Specialty Start Date End Date Unknown, Provider, PCP - General 07/01/09 documented as of this encounter
--- OUTSIDE RECORDS SUMMARY | 2024-06-05 19:10 | XMS_ITS | Encounter Summary ---
[place] [address] Care Team Providers Care Customer Service Sales Associate Name Role Phone Sania Bolanos APRN Primary Care Provider [phone] Encounter Details Date Type Department Care Team (Latest Contact Info) Description 10/24/2017 8:30 AM EDT - 10/24/2017 11:59 PM EDT Hospital Encounter [place] [address] Emil Batista, RVT Varicose veins of right lower extremity with [...] Procedure Name Priority Date/Time Associated Diagnosis Comments UNLATERAL VALVULAR INCOMP Routine 10/24/2017 8:33 AM EDT Varicose veins of right lower extremity with pain documented in this encounter Results * LE Unilateral Valvular Incomp Study (10/24/2017 8:33 AM EDT) VB Text Report Department: Vascular Surgery Lab Patient: [id number] (JOSE BATISTA) CPT: 37154 ICD10: I83.811 Referring Physician: DALLAS HERNANDEZ ?? [...] complications documented in this encounter Care Teams Customer Service Sales Associate Relationship Specialty Start Date End Date Sania Bolanos APRN PCP - General Family Medicine 08/02/17 documented as of this encounter
--- OUTSIDE RECORDS SUMMARY | 2024-06-05 19:10 | XMS_ITS | Encounter Summary ---
Author Organization [facility] Address [address] [place] [address] Care Team Providers Care Mounter Saxophones Name Role Phone Unknown, Provider Primary Care Provider [phone] Encounter Details Date Type Department Care Team (Late st Contact Info) Description 06/04/2005 Results Only [facility] [address] [place] [address] Estelle Sampson, [facility] [address] [place] [address] Social History Tobacco Use Types Packs/Day Years Used Date Smoking Tobacco: Never Assessed Sex and Gender Information Value Date Recorded Sex Assigned at Not on file Gender Identity Not on file Sexual Orientation Not on file documented as of this encounter Plan of Treatment Not on file documented as of this encounter Procedures Procedure Name Priority Date/Time Associated Diagnosis Comments HPV DETECTION, HIGH RISK TYPES Routine 06/04/2005 12:10 EDT CYTOPATHOLOGY Routine 06/04/2005 0:00 EDT documented in this encounter Results * HUMAN PAPILLOMA VIRUS DNA TEST (06/04/2005 12:10 EDT) Specimen Description Cervix, ThinPrep vial [facility] Result Negative for HPV types 16, 18, 31, 33, 35, 39, 45, 51, 52, 56, 58, 59, and 68. [facility] Report Status Final [id number] [facility] 06/04/2005 12:1 0 EDT 06/14/2005 9:49 EST Estelle Jorge Adrián PATENTS EXAMINER MICROBIOLOGY - GENER AL ORDERABLES [facility] [address] [place] [address] * CYTOPATHOLOGY (06/04/2005 0:00 EDT) Pathology Report: CYTOPATHOLOGY REPORT Reports generated via electronic interface contain original data; however they are lacking the format of the original report. Caution should be taken when reading/interpreti ng unformatted reports. Name: ? MAIKOL JOSE ? Accession #: ? [id number] : ? 1980 (Age: 24) ??F ?Collect Date: ? 06/04/2005 Location: ? [facility] ? Receive Date: ? 06/05/2005 Provider: ?ESTELLE SAMPSON PATENTS EXAMINER Copy to: ? Specimen/Source: ?ThinPrep Pap Test, Cervix/Endocervix, processed on Return Path ThinPrep Imaging System, with manual evaluation Last Menstrual Period: ? 05/24/05 Hormonal/Contracep tive Status: ? Yes: Progestin only pill Previous Gynecologic Pathology: ? ASC-US: 11/27/04 Conventional pap Other: ? HPVA - HPV testing requested if ASC-US on the current ThinPrep Pap test. ? SPECIMEN ADEQUACY ? Satisfactory for Evaluation - transformation zone component present GENERAL CATEGORIZATION ? Epithelial Cell Abnormality INTERPRETATION ? Squamous Cell Abnormality - Atypical squamous cells, undetermined significance. Fungal organisms present morphologically consistent with Mayra species. EDUCATIONAL NOTES/RECOMMENDATI ONS ? [facility] recommends following the 2001 Consensus Guidelines for the Management of Women with Cervical Cytological Abnormalities (NAZARIO,2002;287:212 0-9). Management algorithms have been distributed by [facility] and are available online at www.ASCCP.org. ? Document reviewed and electronically signed by: ? DEBBY KOTHARI MD ? Report Date: ??06/13/2005 16:44 End of Report [facility] 06/04/2005 06/05/2005 Estelle Sampson PATENTS EXAMINER PATHOLOGY ORDERABLES [facility] [address] [place] [address] documented in this encounter Visit Diagnoses Not on filedocumented in this encounter Care Teams Mounter Saxophones Relationship Specialty Start Date End Date Unknown, Provider, PCP - General 07/01/09 documented as of this encounter
--- OUTSIDE RECORDS SUMMARY | 2024-06-05 19:10 | XMS_ITS | Encounter Summary ---
Author Organization [facility] Address [facility] [place] [address] Care Team Providers Care Masonry Instructor Name Role Phone Sania Bolanos APRN Primary Care Provider [phone] Reason for Visit * Reason Comments Varicose Veins RLE PAINFUL VV HERE FOR CONSULT AND STUDY Encounter Details Date Type Department Care Team (Late st Contact Info) Description 10/24/2017 9:30 AM EDT Office Visit [place] [phone] Jennyfer Montes De Oca MD [facility] [place] [address] Varicose veins of right lower extremity with pain Social History Tobacco Use Types Packs/Day Years Used Date Smoking Tobacco: Never Smokeless Tobacco: Never Sex and Gender Information Value Date Recorded Sex Assigned at Not on file Gender Identity Not on file Sexual Orientation Not on file documented as of this encounter Last Filed Vital Signs Vital Sign Reading Time Taken Comments Blood Pressure 114/67 10/24/2017 9:06 AM EDT Pulse 72 10/24/2017 9:06 AM EDT Temperature - - Respiratory Rate 18 10/24/2017 9:06 AM EDT Oxygen Saturation - - Inhaled Oxygen Concentration - - Weight 54.4 kg (120 lb) 10/24/2017 9:06 AM EDT Height 172.7 cm (5' 8) 10/24/2017 9:06 AM EDT Body Mass Index 18.25 10/24/2017 9:06 AM EDT documented in this encounter Progress Notes * Jennyfer Montes De Oca MD - 10/24/2017 9:30 AM EDT Vascular Surgery Clinic Visit October 25, 2017 CC: Patient is a 37 y.o. female who is here for follow up of varicose veins. Presents for scheduled follow up visit. Was seen by Mickie Canas in 07/2017 for symptomatic RLE varicose veins. Started on compression stockings at that time. States the her symptoms continue to bother her despite daily use of compression stockings. On exam, patient in NAD. RLE with varicose veins. No open lesions or stigmata of recent bleeding. Imaging studies: I have personally reviewed the following imaging studies. study (10/24/17): Findings: Right ?Reflux?Diameter (mm) ??Depth (mm) ?? [...] calf that course distally to the ankle. A/P: 37 female with symptomatic RLE varicose veins despite regular use of compression stockings. The reflux in femoral vein is focal and minor. Discussed the risk and benefits of undergoing surgery vs continuing with medical management. She wishes to undergo vein ablation. Will plan for R GSV RFA/stab phlebectomy under general anesthesia - tentatively scheduled for 10/30/17 pending insurance approval. Jennyfer Montes De Oca MD documented in this encounter Plan of Treatment Not on file documented as of this encounter Visit Diagnoses Diagnosis Varicose veins of right lower extremity with pain Varicose veins of lower extremities with other complications documented in this encounter Care Teams Masonry Instructor Relationship Specialty Start Date End Date Sania Boalnos APRN PCP - General Family Medicine 08/02/17 documented as of this encounter
--- OUTSIDE RECORDS SUMMARY | 2024-06-05 19:10 | XMS_ITS | Encounter Summary ---
Author Organization [facility] Address [address] [place] [address] Care Team Providers Care Chairman & Ceo Name Role Phone Unknown, Provider Primary Care Provider [phone] Encounter Details Date Type Department Care Team (Late st Contact Info) Description 11/27/2004 Results Only [facility] [address] [place] [address] [place], [place] [id number] Social History Tobacco Use Types Packs/Day Years Used Date Smoking Tobacco: Never Assessed Sex and Gender Information Value Date Recorded Sex Assigned at Not on file Gender Identity Not on file Sexual Orientation Not on file documented as of this encounter Plan of Treatment Not on file documented as of this encounter Procedures Procedure Name Priority Date/Time Associated Diagnosis Comments CYTOPATHOLOGY Routine 11/27/2004 0:00 EDT documented in this encounter Results * CYTOPATHOLOGY (11/27/2004 0:00 EDT) Pathology Report: CYTOPATHOLOGY REPORT Reports generated via electronic interface contain original data; however they are lacking the format of the original report. Caution should be taken when reading/interpreti ng unformatted reports. Name: ? JOSE BATISTA ? Accession #: ? [id number] : ? 1980 (Age: 24) ??F ?Collect Date: ? 11/27/2004 Location: ? [facility] ? Receive Date: ? 11/28/2004 Provider: ?MONROE BAKARI AGUIRRE Copy to: ? Specimen/Source: ?Conventional Pap Test, Cervix/Endocervix Last Menstrual Period: ? 12/13 Menstrual/Pregnanc y Status: ? Post ? SPECIMEN ADEQUACY ? Satisfactory for Evaluation - transformation zone component present GENERAL CATEGORIZATION ? Epithelial Cell Abnormality INTERPRETATION ? Squamous Cell Abnormality - Atypical squamous cells, undetermined significance. EDUCATIONAL NOTES/RECOMMENDATI ONS ? [facility] recommends following the 2001 Consensus Guidelines for the Management of Women with Cervical Cytological Abnormalities (NAZARIO,2002;287:212 0-9). Management algorithms have been distributed by [facility] and are available online at www.ASCCP.org. ? Document reviewed and electronically signed by: ? KWAKU ROCKWELL MD ? Report Date: ??12/07/2004 09:57 End of Report [facility] 11/27/2004 11/28/2004 Monroe Cohen CNM PATHOLOGY ORDERABLES Performing Organization Address City/State/[facility] Co de Phone Number [facility] [address] [place] [address] documented in this encounter Visit Diagnoses Not on filedocumented in this encounter Care Teams Chairman & Ceo Relationship Specialty Start Date End Date Unknown, Provider, PCP - General 07/01/09 documented as of this encounter
[2024-06-05 22:20] LABS: Campylobacter PCR Negative (Negative); Salmonella PCR Negative (Negative); Shiga Toxin PCR Negative (Negative); Shigella/Enteroinvasive Ecoli Negative (Negative)
== END 2024-06-05 19:09 | disposition home or self-care (01) ==
LOC: LBN 19:08
PROVIDERS: PCP Nurse Practitioner Family; Visit Provider Nurse Practitioner Family
DX: K21.9 Gastro-esophageal reflux disease without esophagitis (principal); K52.9 Noninfective gastroenteritis and colitis, unspecified; N93.0 Postcoital and contact bleeding; R19.8 Other specified symptoms and signs involving the digestive system and abdomen
CPT/HCPCS: 87505

== ENCOUNTER 2024-06-11 13:15 | Outpatient (REF) | payer BC, SELFPAY ==
--- NOTE | 2024-06-11 13:15 | CER_PTH ---
PATIENT: Shannan Batista LOC: N U#:[id number] AGE/SX: 43/F ROOM: RE06/11/[address]: Flora Rahman DO : 1980 BED: DIS: 06/11/2024 SPEC #: [id number] RECD: 06/11/24 17:40 STATUS: ADAL REQ #: [id number] MYRIAM: 06/11/24 13:[address]: Flora Rahman DEPT: Surgical Specimen RECD BY: Sydney Angel ENTERED: 06/11/24 17:41 SP TYPE: CER JEREMY DR: CAMILLE Montejo Tissues: 1 - CERVICAL BIOPSY Procedures: GROSS AND MICRO LEVEL 4 Comments: [id number]
== END 2024-06-11 13:16 | disposition home or self-care (01) ==
LOC: LBN 13:15
PROVIDERS: PCP Nurse Practitioner Family; Visit Provider Obstetrics & Gynecology
DX: N93.0 Postcoital and contact bleeding (principal); N84.1 Polyp of cervix uteri; R14.0 Abdominal distension (gaseous)
CPT/HCPCS: 88305

== ENCOUNTER 2024-06-29 10:05 | Outpatient (CLI) | payer BC, SELFPAY ==
[2024-06-29 12:36] LABS: Abs Immature Grans 0.02 10^3/uL (0.0-0.06); Absolute Eosinophil Count 0.01 10^3/uL (0.0-0.7); Absolute Lymphocyte Count 1.93 10^3/uL (1.2-3.4); Absolute Monocyte Count 0.31 10^3/uL (0.1-0.8); Absolute Neutrophil Count 2.44 10^3/uL (1.2-6.7); Eosinophils % 0.2 %; HCT 36.6 % (36.0-46.0); HGB 12.3 g/dL (11.2-15.7); Immature Grans % 0.4 %; MCH 31.2 pg (27.0-33.0); MCHC 33.6 % (32.0-36.0); MCV 93 fL (80-95); MPV 11.6 fL (8.0-11.0); Monocytes % 6.6 %; Neutrophils % 51.8 %; Platelet Count 191 10^3/uL (130-400); RBC 3.94 10^6/uL (3.93-5.22); RDW 12.6 % (11.7-14.6); RDW-SD 43.2 fL; WBC 4.71 10^3/uL (4.4-10.8)
[2024-06-29 12:42] LABS: ESR < 1 mm/hr (0-20)
[2024-06-29 13:14] LABS: ALT 23 U/L (14-59); AST 12 U/L (15-37); Albumin 3.6 g/dL (3.4-5.0); Alkaline Phosphatase 66 U/L (46-116); Anion Gap 9.6 mmol/L (3-11); BUN 14 mg/dL (7-18); Bilirubin, Total 0.52 mg/dL (0.2-1.0); CO2 24.4 mmol/L (21.0-32.0); CREATININE 0.9 mg/dL (0.55-1.02); Chloride 110 mmol/L (98-107); Estimated GFR 81.35 (mL/min/1.73m2); Ferritin 24 ng/mL (8-252); Glucose 66 mg/dL (74-106); Potassium 3.7 mmol/L (3.5-5.1); Sodium 144 mmol/L (136-145); TSH (W/Ref FT4) 5.87 uIU/mL (0.36-3.74); Total Protein 6.4 g/dL (6.4-8.2)
[2024-06-29 13:17] LABS: C-Reactive Protein < 0.50 mg/dL (<or=0.5)
[2024-06-29 15:31] LABS: FREE T4 0.97 ng/dL (0.76-1.46)
[2024-06-30 10:58] LABS: Hepatitis C Ab w Rflx HCV PCR Negative (Negative)
[2024-06-30 11:10] LABS: HIV-1/2 Ag & Ab Screen Negative (Negative)
[2024-06-30 11:49] LABS: IgA 128 mg/dL (85-499); Interpretation (See Note); Tissue Transglutaminase IgA <4.0 CU (<20.0)
[2024-06-30 18:03] LABS: HBs Antibody, Quant >1000.0 mIU/mL (See Note); Hep B Surface Ab Positive (See Note); Hepatitis B Core Antibody Negative (Negative); Hepatitis B Surface Antigen Negative (Negative)
== END 2024-06-29 10:06 | disposition home or self-care (01) ==
LOC: LOS 10:05
PROVIDERS: PCP Nurse Practitioner Family; Referring Provider Nurse Practitioner Family; Visit Provider Nurse Practitioner Family
DX: Z11.4 Encounter for screening for human immunodeficiency virus [HIV] (principal); Z00.00 Encounter for general adult medical examination without abnormal findings; K52.9 Noninfective gastroenteritis and colitis, unspecified; Z11.59 Encounter for screening for other viral diseases; D50.9 Iron deficiency anemia, unspecified; R10.32 Left lower quadrant pain; E03.9 Hypothyroidism, unspecified
CPT/HCPCS: 36415; 80053; 82784; 83516; 85652; 86704; 86706; 86803; 87340; 87389; 82728; 84439; 84443; 85025; 86140

== ENCOUNTER 2024-07-20 09:58 | Day surgery (SDC) | payer BC, SELFPAY ==
--- NOTE | 2024-07-19 18:06 | W.PM.DSUDISC ---
Date of service: 07/20/24 Discharge Plan Disposition Patient Disposition: Home Condition: Good Discharge Details Reason For Visit: screening colonoscopy Attending Provider: Raul Batista Primary Care Provider: Leidy Aldridge Home Meds and New Rx's Prescriptions: Continued cyanocobalamin (vitamin B-12) 1,000 mcg capsule 1,000 mcg PO DAILY ferrous sulfate 325 mg (65 mg iron) tablet 325 mg PO DAILY Qty: 90 3RF levothyroxine 100 mcg tablet 100 mcg PO DAILY Qty: 90 0RF Discontinued bisacodyl [Dulcolax (bisacodyl)] 5 mg tablet,delayed release (DR/EC) 5 mg PO ONCE Qty: 4 0RF Rx Instructions: Take per colonoscopy instructions provided by ordering providers office polyethylene glycol 3350 17 gram/dose powder 17 g PO ONCE Qty: 238 0RF Rx Instructions: Take per colonoscopy instructions provided by ordering providers office Discharge Instructions Instructions: High-fiber diet Additional Instructions: Mariela, It was very nice to see you again today, and hope you feel well this afternoon after colonoscopy. Your colon is a little bit redundant and tortuous, or twisting. The tissue itself appears all normal and healthy, and I do not see any signs of active inflammatory bowel disease or obvious colitis. To the naked eye, your colon gives the appearance of somebody who has slow colonic transit or chronic constipation. And while I would not typically associated diarrhea with that, there are times where patients have overflow of liquid stools in the background of otherwise slow passage of more solid fecal matter. Typically, I recommend that patients try to increase her dietary fiber to help offset some of the liquid stools, and help ensure soft bulky stools that are easier for the colon to propel forward. Like we discussed before hand, I did do multiple biopsies all the length of your colon to see if there is anything that may not be obvious to the gross exam. Those results take a week or 2 to get back, but as soon as I have them, the office will be in touch. If you need anything, or have any questions in the meantime, please do not hesitate to ask. 1. If tolerated, consume a soft, low fiber diet for 1-2 days. 2[address] Do not drive, drink alcohol, operate machinery, make critical decisions, or do activities that require coordination or balance for 24 hours. 3. Because air was put into your colon during the procedure, expelling air from your rectum (passing gas or farting) is normal. 4. You may not have a bowel movement for 1-3 days because of the colonoscopy prep. This is normal. 5. Go directly to the emergency room if you notice any of the following: Develop chills (warm to touch), or if you have a thermometer and your temperature is above 101 Difficulty breathing or difficultly swallowing Persistent vomiting Severe abdominal pain, other than gas cramps Severe chest pain Black, tarry stools Any bleeding ? exceeding one tablespoon 6. Call your physician if the site where your intravenous was started becomes red, swollen, painful, and warm to touch. 7. Your physician has reviewed your pre-procedure medications. Please continue to take those medications as previously ordered. You will be given specific information/education regarding any changes to your medications before leaving. Activity:: Activity as Tolerated Diet:: As Tolerated Discharge Orders Discharge Orders: Discharge Order (Routine); Ordered 07/19/24 Ordered By: Raul Batista DS: Diagnosis Discharge Diagnosis (1) Chronic diarrhea: Status: Acute Asessment and Plan: Follow-up on biopsy results
--- NOTE | 2024-07-19 18:08 | W.COLOREPORT ---
Date of service: 07/20/24 Time of Service: 12:43 Colonoscopy Report Date of procedure: 07/20/24 Pre-op diagnosis general: Chronic diarrhea Post-op diagnosis procedure note: other (Normal-appearing colonoscopy) Procedure: colonoscopy Surgeon: Raul Batista Anesthesia Type: General:No Airway Estimated blood loss (mL): 10 Pathology: other (Nondirected biopsies along the length of the colon and rectum) Complications: None Disposition: same day Indications: Mariela is a 43 year woman with chronic diarrhea and a history of iron deficiency anemia Prep: Miralax/Dulcolax Procedure Start Time: 11:41 Procedure End Time: 12:23 Retraction Time: 13 Findings: Redundant and tortuous colon Procedure Description: After the induction of anesthesia, and with the patient in left lateral decubitus position, I began by performing an external anorectal exam.? Perineum and skin were normal, as was the anal verge.? There was no evidence of external hemorrhoids.? Next, I performed a digital rectal exam.? I did not appreciate any abnormal findings.? Next, I advanced a colonoscope into the rectal vault.? I performed retroflexion.? This appeared normal. Using insufflation, I then advanced the colonoscope beyond the rectal folds and into the sigmoid colon before advancing towards the cecum.? The colon itself was quite redundant and a many areas torturous. This required some external abdominal pressure to help manipulate the colonoscope forward. There was retained solid and semisolid stool in all segments of the colon. The scope was noted to be in the cecum by identification of the ileocecal valve and appendiceal orifice.? I then began withdrawing the colonoscope using repeated irrigation as necessary for full evaluation of the colonic mucosa. Along the length of the colonoscopy, I did multiple nondirected biopsies of the colonic mucosa to see if that would offer any evidence with regards to her symptoms. The mucosa itself was all normal and healthy appearing. The lumen was a bit cavernous throughout the length of the colon, and I did not see any signs of any discrete narrowing, stricture, or anything that would suggest intrinsic or extrinsic bowel obstruction. Once the scope was withdrawn to the level of the rectum, great care was taken to examine portions of the rectal folds.? Finally, the scope was withdrawn and the patient was brought to postanesthesia care unit as the anesthetic wore off. ?The findings and instructions were shared with the patient prior to discharge. [place] Bowel Prep [place] Bowel Prep Right Colon: 1 Left Colon: 1 Transverse Colon: 1 Total Score: 3
[2024-07-20] VITALS (10 sets, daily range): BP systolic 103–122; BP diastolic 48–62; PULSE 58–82; RESP 15–24; TEMP 36.1–36.8; O2SAT 100; BMI 18.3
--- NOTE | 2024-07-20 11:28 | W.ANESPRE ---
General Info Date of Service Date Performed: 07/20/24 Height: 5 ft 8 in Weight: 54.9 kg Body Mass Index (BMI): 18.3 Surgical Procedure: Operation Date: 07/20/24 11:20 Proposed Procedure Side Surgeon estefania Batista MD Meds Allergies and Home Medications Allergies Allergy/AdvReac Type Severity Reaction Status Date / Time propranolol AdvReac Mild Rash Verified 07/20/24 10:52 Home Medication ?Medication ?Instructions ?Recorded cyanocobalamin (vitamin B-12) 1,000 mcg PO DAILY 08/13/23 1,000 mcg capsule ferrous sulfate 325 mg (65 mg 325 mg PO DAILY #90 tabs 12/04/23 iron) tablet levothyroxine 100 mcg tablet 100 mcg PO DAILY #90 tabs 06/30/24 Current Visit Medications: Current Medications Generic Name Dose Route Start Last Admin Trade Name Freq PRN Reason Stop Dose Admin Sodium Chloride 500 mls @ 30 mls/hr 07/20/24 10:00 Saline 500ml Bag IV 08/19/24 09:59 INFUSION BRIANA IV Miscellaneous Supplies 1 each 07/20/24 06:00 Iv Access IV 08/16/24 23:59 DIRECTED BRIANA Ondansetron HCl 4 mg 07/19/24 18:11 Ondansetron 4 Mg/2 Ml Vial IVP 08/18/24 18:10 Q4H PRN PRN Nausea / Vomiting Sodium Chloride 0 ml 07/20/24 06:00 Normal Saline Flush 10 Ml Syr IV 08/16/24 23:59 PRN PRN Sodium Chloride 0 ml 07/20/24 06:00 Normal Saline 10 Ml Vial IJ 08/16/24 23:59 DIRECTED PRN Sterile Water 0 ml 07/20/24 06:00 Water,Injection,Sterile 10 Ml Vial IJ 08/16/24 23:59 DIRECTED PRN PFSH Active Problems Active Problems: Problem Status Onset Code Bleeding of cervix Acute N88.8 Abdominal bloating Acute R14.0 Dyspareunia in female Acute N94.10 PCB (post coital bleeding) Acute N93.0 Chronic diarrhea Acute K52.9 GERD (gastroesophageal reflux disease) Chronic K21.9 Hypothyroidism Chronic E03.9 Perimenopausal vasomotor symptoms Chronic N95.1 Migraine headache without aura Chronic G43.009 Chronic headache Chronic R51.9, G89.29 Generalized anxiety disorder Chronic Medical History Medical History Endocervical polyp Iron deficiency anemia Herpes zoster Surgical History Surgical History History of esophagogastroduodenoscopy (~01/2024) Status post endovenous radiofrequency ablation (RFA) of saphenous vein (10/30/17) Right GSV ablation with RFA and stab phlebectomies S/P appendectomy Tobacco Smoking/Tobacco Use Status: Never Passive smoking exposure: No Second hand exposure: No Alcohol Alcohol Intake: current Alcohol intake frequency: holidays/special occasions only Alcohol type: beer and wine Substance Use Substance use: Never Substance use type: does not use Prental History History 2 Para 2 Hx # Term Pregnancies Multiple births Hx # Pregnancies Ectopic pregnancies AB induced Hx Number of Living Children 2 AB spontaneous Vital Signs and Lab Results Vital Signs Most Recent Vital Signs in EMR: Most Recent Vital Signs Temp Pulse Resp BP Pulse Ox 36.4 C L 82 20 114/62 100 07/20/24 10:08 07/20/24 10:08 07/20/24 10:08 07/20/24 10:08 07/20/24 10:08 Point of Care Results Point of Care Results: POC- Test(urine) Negative 07/20/24 11:25 Lab Results Blood Type / Crossmatch: No Data to Display Complete Blood Count: White Blood Count 4.71 10^3/uL (4.4-10.8) 06/29/24 10:26 Red Blood Count 3.94 10^6/uL (3.93-5.22) 06/29/24 10:26 Hemoglobin 12.3 g/dL (11.2-15.7) 06/29/24 10:26 Hematocrit 36.6 % (36.0-46.0) 06/29/24 10:26 Platelet Count 191 10^3/uL (130-400) 06/29/24 10:26 Complete Metabolic Panel: Sodium 144 mmol/L (136-145) 06/29/24 10:26 Potassium 3.7 mmol/L (3.5-5.1) 06/29/24 10:26 Chloride 110 mmol/L (98-107) H 06/29/24 10:26 Carbon Dioxide 24.4 mmol/L (21.0-32.0) 06/29/24 10:26 BUN 14 mg/dL (7-18) 06/29/24 10:26 Creatinine 0.9 mg/dL (0.55-1.02) 06/29/24 10:26 Est GFR (CKD-EPI 2020) 81.35 (mL/min/1.73m2) 06/29/24 10:26 Calcium 9.0 mg/dL (8.5-10.1) 06/29/24 10:26 Albumin 3.6 g/dL (3.4-5.0) 06/29/24 10:26 Glucose 66 mg/dL (74-106) L 06/29/24 10:26 C-Reactive Protein < 0.50 mg/dL (<or=0.5) 06/29/24 10:26 Liver Function Panel: Alanine Aminotransferase (ALT/SGPT) 23 U/L (14-59) 06/29/24 10:26 Aspartate Amino Transf (AST/SGOT) 12 U/L (15-37) L 06/29/24 10:26 Coagulation Panel: No Data to Display Cardiac Panel: No Data to Display Arterial Blood Gas: No Data to Display Venous Blood Gas: No Data to Display Pancreas Panel: No Data to Display Thyroid Panel: Thyroid Stimulating Hormone (TSH) 5.87 uIU/mL (0.36-3.74) H 06/29/24 10:26 Infectious Disease: HIV (1&2) Ag and Ab, 4th Generation Negative (Negative) 06/29/24 10:26 Hepatitis B Surface Antigen Negative (Negative) 06/29/24 10:26 Hepatitis C Antibody Negative (Negative) 06/29/24 10:26 Blood Cultures: No Data to Display Toxicology Panel: No Data to Display Panel: No Data to Display Anesthesia Assessment and Plan Anesthesia History Personal History: No History of Anesthesia Complications Family History: No Family History of Anesthesia Complications Exercise Tolerance Exercise Tolerance: Metabolic Equivalents>4 Pertinent Negatives Pertinent Negatives: No Symptoms of GERD, No Major Cardiovascular Symptoms or Complaints, No Major Pulmonary Symptoms or Complaints and No History of CVA/TIA Cardiac & Pulmonary Exam Cardiac Exam: Normal S1/S2 Heart Sounds Pulmonary Exam: Clear Bilateral Breath Sounds Implantable Cardiac Device Does patient have a Pacemaker or an ICD?: No Airway Exam Known Difficult Airway: No Mallampati Class: 1 Mouth Opening: Normal (> 3cm) Thyromental Distance: Less than 3 cm Neck Range of Motion: Full ROM Neck Circumference: Normal Teeth Condition: Normal Dentition ASA Classification ASA Score: ASA 2 Emergency Case?: No NPO Status NPO Status: NPO Clears >2 hours, Solids >8 hours Status Status: Negative HCG Anesthesia Plan Resuscitation Status: Full Code Anesthesia Technique: General Anesthesia Airway Planned: Natural Airway Monitors Used: Standard Monitors
[2024-07-20] MEDS: Normal Saline 500 ML 30 ML IV (11:30)
--- NOTE | 2024-07-20 12:16 | BOWEL_PTH ---
PATIENT: Shannan Batista LOC: [facility] U#:[id number] AGE/SX: 43/F ROOM: RE07/20/[address]: Raul Batista MD : 1980 BED: DIS: 07/20/2024 SPEC #: [id number] RECD: 07/20/24 13:03 STATUS: ADAL RE #: [id number] MYRIAM: 07/20/24 12:[address]: Raul Batista DEPT: Surgical Specimen RECD BY: Sydney Angel ENTERED: 07/20/24 13:04 SP TYPE: Bowel OTHR DR: CAMILLE Montejo Tissues: 1 - BIOPSY BOWEL Procedures: GROSS AND MICRO LEVEL 4 Comments: [id number]
--- NOTE | 2024-07-20 13:19 | W.ANESPOSTOP ---
Postoperative Evaluation Date, Time and Location Date Performed: 07/20/24 Time Performed: 13:19 Patient Location: Day Surgery Unit Vital Signs Most Recent Imported Vital Signs: Most Recent Vital Signs Temp Pulse Resp BP Pulse Ox 36.1 C L 66 15 122/57 L 100 07/20/24 13:15 07/20/24 13:15 07/20/24 13:15 07/20/24 13:15 07/20/24 13:15 Pain Score Most Recent Pain Score: Most Recent Pain Score Pain Level 0 07/20/24 13:15 Assessment Mental Status: Awake (Alert & Oriented to Patient Baseline) Airway and Respiratory Function: Patent airway with normal (patient baseline) respiratory exam Cardiovascular Function: Hemodynamically Stable Hydration Status: Adequately Hydrated Nausea & Vomiting: No Nausea or Vomiting Pain: Pt. Denies Any Pain Peripheral Nerve Block: Patient did not receive a nerve block
== END 2024-07-20 13:50 | disposition home or self-care (01) ==
LOC: SUR 09:58
PROVIDERS: PCP Nurse Practitioner Family; Visit Provider Surgery
PROC: 0DJD8ZZ Inspection of Lower Intestinal Tract, Via Natural or Artificial Opening Endoscopic (ICD-10-PCS; CPT 45378; principal; 2024-07-20 11:15)
DX: K52.9 Noninfective gastroenteritis and colitis, unspecified (principal); Z12.11 Encounter for screening for malignant neoplasm of colon
CPT/HCPCS: 45380; 81025; 88305; J2003; J2371; J2405; J2704

== ENCOUNTER 2024-08-19 10:37 | Outpatient (CLI) | payer OTHER, SELFPAY ==
[2024-08-19 12:29] LABS: Abs Immature Grans 0.06 10^3/uL (0.0-0.06); Absolute Basophil Count 0.01 10^3/uL (0.0-0.2); Absolute Eosinophil Count 0.01 10^3/uL (0.0-0.7); Absolute Lymphocyte Count 2.55 10^3/uL (1.2-3.4); Absolute Monocyte Count 0.62 10^3/uL (0.1-0.8); Absolute Neutrophil Count 4.54 10^3/uL (1.2-6.7); Basophils % 0.1 %; Eosinophils % 0.1 %; HCT 42.5 % (36.0-46.0); HGB 14.4 g/dL (11.2-15.7); Immature Grans % 0.8 %; Lymphocytes % 32.7 %; MCH 30.5 pg (27.0-33.0); MCHC 33.9 % (32.0-36.0); MCV 90 fL (80-95); Neutrophils % 58.3 %; Platelet Count 234 10^3/uL (130-400); RBC 4.72 10^6/uL (3.93-5.22); RDW 12.6 % (11.7-14.6); RDW-SD 41.8 fL; WBC 7.79 10^3/uL (4.4-10.8)
[2024-08-19 12:36] LABS: ALT 10 U/L (14-59); AST 9 U/L (15-37); Albumin 3.4 g/dL (3.4-5.0); Alkaline Phosphatase 72 U/L (46-116); Anion Gap 8.2 mmol/L (3-11); BUN 13 mg/dL (7-18); Bilirubin, Total 0.63 mg/dL (0.2-1.0); CO2 26.8 mmol/L (21.0-32.0); Calcium 8.9 mg/dL (8.5-10.1); Calculated LDL 111 mg/dL (<100); Chloride 107 mmol/L (98-107); Cholesterol 188 mg/dL (<200); Estimated GFR 71.69 (mL/min/1.73m2); Glucose 85 mg/dL (74-106); HDL Cholesterol 59 mg/dL (40-60); Potassium 3.8 mmol/L (3.5-5.1); Sodium 142 mmol/L (136-145); Total Protein 6.4 g/dL (6.4-8.2); Triglyceride 94 mg/dL (<150)
[2024-08-19 12:39] LABS: ESR < 1 mm/hr (0-20)
[2024-08-19 12:52] LABS: FREE T4 0.97 ng/dL (0.76-1.46)
[2024-08-19 12:55] LABS: C-Reactive Protein < 0.50 mg/dL (<or=0.5)
[2024-08-20 14:59] LABS: ANA Interpretation Negative (Negative)
== END 2024-08-19 10:38 | disposition home or self-care (01) ==
LOC: LOS 10:37
PROVIDERS: PCP Nurse Practitioner Family; Referring Provider Nurse Practitioner Family; Visit Provider Nurse Practitioner Family
DX: E03.9 Hypothyroidism, unspecified (principal); K58.9 Irritable bowel syndrome, unspecified; L50.9 Urticaria, unspecified; R14.0 Abdominal distension (gaseous)
CPT/HCPCS: 36415; 80053; 80061; 85652; 83036; 84439; 84443; 85025; 86038; 86140

== ENCOUNTER 2024-08-31 03:43 | Outpatient (CLI) | payer OTHER, SELFPAY ==
--- NOTE | 2024-09-03 13:36 | W.NUTRFU ---
Date of service: 08/31/24 Time of Service: 13:00 Nutrition Note NOTE: Mariela referred after negarive colonoscopy workup for bowel concerns/abdominal distention with consitpation and diarrhea. Mariela reports stable weight. Started ~last September and started with diarrhea, constant indgestion/reflux and persisted well into the summer when she started trying to address this. Has been going milk free for 2 weeks. has allergy tested slated soon to further try to explain symptoms. She takes a b12 supplement and follows an bhhto-tsu-ltouyrxvtne diet pattern. she brought in a few days of diet recall printed from [employer] and food choices appear healthy as a whole. Did caution her about caffeine via daily coffee. Suggested taking B-complex for better rounded supplement if she wants to take b12 - but her intake of eggs, dairy and fish account for b12 as well. Encouraged taking D3 at 1,000-2,000IU vitamin maybe a little more for a while to help make up for her lack of supplmentation. Suggested and reveiwed info on the fodmap elimination diet and pointed her to resource of [facility] as they have great resources and guidance in putting the diet into action. Also reviewed menu planning resources with AI to help plan sample menus she can try to follow. She will work at the fodmap diet and avoid high fodmap foods and then introduce one category at a time acoording to rescours given. She had my contact info should she desire followup or has any questions. Time Spent in Nutritional Counseling and Treatment: 30 minutes
== END 2024-08-31 03:44 | disposition home or self-care (01) ==
LOC: DS 03:44
PROVIDERS: PCP Nurse Practitioner Family; Visit Provider Dietitian, Registered
DX: K58.9 Irritable bowel syndrome, unspecified (principal)
CPT/HCPCS: 00123; 97802

== ENCOUNTER 2024-10-07 02:10 | Outpatient (CLI) | payer OTHER, SELFPAY ==
--- NOTE | 2024-10-07 07:45 | DI.MAMMO_ITS ---
Exam(s) MAMMO SCREENING EXAM: MAMMO SCREENING CLINICAL HISTORY: screening,Z12.39 TECHNIQUE: Mammograms were interpreted according to the usual protocol including computer analysis w [employer] CAD system, tomosynthesis and C-view imaging. COMPARISON: 2020 through 2023 FINDINGS: The breasts are composed of heterogeneously dense fibroglandular densities, Breast Density category C . No suspicious masses or suspicious microcalcifications are seen. No skin thickening or abnormal axillary lymph nodes are seen. There has been no significant change from prior exams. IMPRESSION: BI-RADS Category 1, Negative mammogram. Yearly screening mammography is recommended. Breast Density Category C, heterogeneously Dense. The mammogram demonstrates the patient's breast tissue is dense. Dense breast tissue is very common a nd is not abnormal but dense breast tissue can make it harder to find cancer on a mammogram. Also, de nse breast tissue may increase breast cancer risk. This information about the result of the mammogram report was provided to the patient to raise their awareness. Use this report when you speak with the patient about their risks for breast cancer, which includes their family history. At that time, you may recommend additional screening tests (Ultrasound or MRI) as they might be useful based on their r isk. A negative radiographic report should not delay biopsy if a dominant or clinically suspicious mass is present. Up to ten percent of cancers are not identified on mammography. A negative report may reinforce clinical impression. Adenosis and dense breasts may obscure an underlying neoplasm. False positive reports average 6 to 10%.
== END 2024-10-07 02:30 ==
LOC: DI 02:10
PROVIDERS: PCP Nurse Practitioner Family; Visit Provider Nurse Practitioner Family
DX: Z12.31 Encounter for screening mammogram for malignant neoplasm of breast (principal); R92.333 Mammographic heterogeneous density, bilateral breasts
CPT/HCPCS: 77063; 77067

== ENCOUNTER 2024-11-20 17:16 | Outpatient (CLI) | payer OTHER, SELFPAY ==
[2024-11-20 17:01] LABS: TSH (W/Ref FT4) 0.94 uIU/mL (0.36-3.74)
== END 2024-11-20 17:17 | disposition home or self-care (01) ==
LOC: LBO 17:17
PROVIDERS: PCP Nurse Practitioner Family; Visit Provider Nurse Practitioner Family
DX: E03.9 Hypothyroidism, unspecified (principal)
CPT/HCPCS: 36415; 84443

== ENCOUNTER 2025-02-27 10:03 | Outpatient (REF) | payer OTHER, SELFPAY ==
[2025-02-27 18:54] LABS: HCT 43.4 % (36.0-46.0); HGB 14.2 g/dL (11.2-15.7); MCH 27.8 pg (27.0-33.0); MCHC 32.7 % (32.0-36.0); MCV 85 fL (80-95); MPV 12.6 fL (8.0-11.0); Platelet Count 210 10^3/uL (130-400); RBC 5.11 10^6/uL (3.93-5.22); RDW 14.8 % (11.7-14.6); RDW-SD 46.0 fL; WBC 4.68 10^3/uL (4.4-10.8)
[2025-02-27 19:15] LABS: Iron 62 ug/dL (50-170)
[2025-02-27 19:58] LABS: Ferritin 12 ng/mL (8-252)
== END 2025-02-27 10:04 | disposition home or self-care (01) ==
LOC: LBN 10:03
PROVIDERS: PCP Nurse Practitioner Family; Visit Provider Nurse Practitioner Family
DX: D50.9 Iron deficiency anemia, unspecified (principal)
CPT/HCPCS: 85027; 82728; 83540

== ENCOUNTER 2025-03-12 13:01 | Outpatient (CLI) | payer OTHER, SELFPAY ==
[2025-03-12 14:15] LABS: TSH (W/Ref FT4) 0.69 uIU/mL (0.36-3.74)
[2025-03-12 22:50] LABS: FSH 5.5 mIU/mL (See Note)
== END 2025-03-12 13:02 | disposition home or self-care (01) ==
LOC: LBO 13:01
PROVIDERS: PCP Nurse Practitioner Family; Visit Provider Obstetrics & Gynecology
DX: N95.1 Menopausal and female climacteric states (principal)
CPT/HCPCS: 36415; 82670; 83001; 84146; 84443